=== PATIENT | female | born 1970 | race Caucasian/White ===

== ENCOUNTER 2018-07-15 16:19 | Emergency (ER) | payer MEDICARE, MEDICAID, SELFPAY ==
[2018-07-15 16:32] VITALS: BP 139/98; PULSE 114; RESP 18; TEMP 37.2; O2SAT 100; BMI 4483.4
[2018-07-15 17:23] LABS: RBC Urine 0-1/HPF (0-5/HPF)
[2018-07-15 17:24] LABS: Bacteria Urine Occasional (0-1); Culture Indicated Urine Cult Not Indicated; Squamous Epithelial Cell Urine 1-5 /HPF (0-5/HPF); WBC Urine 0-1/HPF (0-5/HPF)
--- NOTE | 2018-07-15 17:25 | ED.ABDPAIN ---
HPI - Abdominal Pain <Amber Correia DO - Last Filed: 07/16/18 10:53> General Chief Complaint: Abdominal Pain Stated Complaint: angry stomach Time Seen by Provider: 07/15/18 17:11 Source: patient Mode of arrival: ambulatory Limitations: no limitations History of Present Illness HPI narrative: Patient is a 48-year-old female who presents with upper gastric pain. she says it started last evening. She feels nauseated no vomiting. She has had this pain before she has had complete workup she still has her gallbladder. She does have some right upper quadrant pain. She has had low-grade fever but has had upper respiratory well no cough or shortness of breath. MD complaint: abdominal pain Onset (ago): day(s) (1) Location: RUQ Quality: cramping Radiation: none Migration to: no migration Relieving factors: nothing Related Data Home Medications Medication Instructions Recorded Confirmed albuterol sulfate [Ventolin HFA] 2 puff INHALATION PRN PRN 07/15/18 07/15/18 budesonide-formoterol [Symbicort] 2 puff INHALATION BID 07/15/18 07/15/18 ibuprofen 800 mg PO BID 07/15/18 07/15/18 primidone 0.25 tab PO DAILY 07/15/18 07/15/18 Previous Rx's Medication Instructions Recorded ranitidine HCl [Zantac] 150 mg PO DAILY #30 tab 07/15/18 Allergies Allergy/AdvReac Type Severity Reaction Status Date / Time adhesive Allergy Rash Verified 07/15/18 16:40 iodine Allergy Verified 07/15/18 16:39 Review of Systems <DO Zayda Neal Last Filed: 07/16/18 10:53> Review of Systems GENERAL: Denies chills, fatigue, malaise, fever, sweats, travel HEENT: Denies sinus pain, ear pain, sore throat, difficulty swallowing, neck pain RESPIRATORY: Denies dyspnea, cough, wheezing, hemoptysis, sputum. CARDIOVASCULAR: Denies chest pain, palpitations, orthopnea, edema GASTROINTESTINAL: See HPI : Denies dysuria, frequency, incontinence, hematuria, urinary retention, flank pain. MUSCULOSKELETAL: Denies weakness, joint pain, or bony pain SKIN: No rash, no erythema, no pruritus NEUROLOGIC: Denies weakness, dizziness, headache, numbness, change in speech, confusion PSYCHIATRIC: No concerning psychosocial issues. 12 point review of systems is negative except for those stated above and HPI PFSH <DO Zayda Neal Last Filed: 07/16/18 10:53> Medical History Asthma (Acute) Cervical vertebral fusion (Acute) Surgical History History of bilateral tubal ligation (Acute) History of bladder suspension procedure (Acute) Social History Smoking Status: Current every day smoker Social History Smoking Status: Current every day smoker Exam <DO Zayda Neal Last Filed: 07/16/18 10:53> Initial Vital Signs Initial Vital Signs: Vital Signs Temperature 99.0 F 07/15/18 16:32 Pulse Rate 114 H 07/15/18 16:32 Respiratory Rate 18 07/15/18 16:32 Blood Pressure 139/98 H 07/15/18 16:32 Pulse Oximetry 100 07/15/18 16:32 GENERAL: Alert oriented female and in no acute distress. HEENT: Head atraumatic,EOMI, pupils reactive, face symmetric CARDIOVASCULAR: Regular rate and rhythm without murmurs, rubs or gallops. RESPIRATORY: Breath sounds equal bilaterally, no wheezes rales or rhonchi. ABDOMEN: Soft, epigastric pain right upper quadrant pain positive Rodriguez sign no guarding no rebound EXTREMITIES: Normal range of motion, no clubbing or edema. Neurovascularly intact NEUROLOGICAL: Alert and oriented x4.Normal gait and speech. Cranial nerves II through XII grossly intact. SKIN: Warm, dry, no laceration, no petechiae, no rashes or lesions. <Aakash Raza DO - Last Filed: 07/15/18 19:55> Initial Vital Signs Initial Vital Signs: Vital Signs Temperature 99.0 F 07/15/18 16:32 Pulse Rate 114 H 07/15/18 16:32 Respiratory Rate 18 07/15/18 16:32 Blood Pressure 139/98 H 07/15/18 16:32 Pulse Oximetry 100 07/15/18 16:32 Course <DO Zayda Neal Last Filed: 07/16/18 10:53> Orders Ordered: Discontinued Medications Sodium Chloride (Normal Saline 0.9%) 1,000 mls @ 150 mls/hr IV CONT SOUMYA Last Admin: 07/15/18 18:59 Dose: Not Given Sodium Chloride (Normal Saline 0.9%) 1,000 mls @ 1,000 mls/hr IV BOLUS ONE Stop: 07/15/18 18:30 Last Infusion: 07/15/18 19:00 Dose: 0 mls/hr Admin: 07/15/18 17:45 Dose: 1,000 mls/hr Ketorolac Tromethamine (Toradol) 30 mg IV NOW ONE Stop: 07/15/18 17:32 Last Admin: 07/15/18 17:45 Dose: 30 mg Ondansetron HCl (Zofran) 4 mg IV NOW ONE Stop: 07/15/18 17:32 Last Admin: 07/15/18 17:45 Dose: 4 mg Pantoprazole Sodium (Protonix) 40 mg IV NOW ONE Stop: 07/15/18 17:32 Last Admin: 07/15/18 17:45 Dose: 40 mg Vital Signs - 8 hr 07/15/18 16:32 07/15/18 18:00 Temperature 99.0 F Pulse Rate 114 H 101 H Respiratory Rate 18 20 Blood Pressure 139/98 H Blood Pressure [Right Arm] 120/105 H Pulse Oximetry 100 98 <Aakash Raza DO - Last Filed: 07/15/18 19:55> Orders Ordered: Discontinued Medications Sodium Chloride (Normal Saline 0.9%) 1,000 mls @ 150 mls/hr IV CONT [facility] Last Admin: 07/15/18 18:59 Dose: Not Given Sodium Chloride (Normal Saline 0.9%) 1,000 mls @ 1,000 mls/hr IV BOLUS ONE Stop: 07/15/18 18:30 Last Infusion: 07/15/18 19:00 Dose: 0 mls/hr Admin: 07/15/18 17:45 Dose: 1,000 mls/hr Ketorolac Tromethamine (Toradol) 30 mg IV NOW ONE Stop: 07/15/18 17:32 Last Admin: 07/15/18 17:45 Dose: 30 mg Ondansetron HCl (Zofran) 4 mg IV NOW ONE Stop: 07/15/18 17:32 Last Admin: 07/15/18 17:45 Dose: 4 mg Pantoprazole Sodium (Protonix) 40 mg IV NOW ONE Stop: 07/15/18 17:32 Last Admin: 07/15/18 17:45 Dose: 40 mg Vital Signs - 8 hr 07/15/18 16:32 07/15/18 18:00 Temperature 99.0 F Pulse Rate 114 H 101 H Respiratory Rate 18 20 Blood Pressure 139/98 H Blood Pressure [Right Arm] 120/105 H Pulse Oximetry 100 98 MDM - Abdominal Pain <Amber Correia DO - Last Filed: 07/16/18 10:53> Lab Data Attestation: I reviewed the patient's lab results. Result diagrams: 07/15/18 17:30 07/15/18 18:05 Lab Results 07/15/18 07/15/18 07/15/18 Range/Units 17:00 17:30 18:05 WBC 8.0 (4.5-11.0) X10^3/uL RBC 5.26 H (4.0-5.2) X10^6/uL Hgb 15.4 (12.0-16.0) g/dL Hct 45.8 (36-46) % MCV 87.2 (80-100) fL MCH 29.2 (26-34) PG MCHC 33.5 (30-36) % RDW 14.3 (11.6-14.8) % Plt Count 167 (150-400) X10^3/uL Neut % (Auto) 77.5 H (50-75) % Lymph % (Auto) 16.2 L (25-40) % [place] % (Auto) 5.0 (3-14) % Eos % (Auto) 1.0 L (2-4) % Baso % (Auto) 0.3 (0-2) % Neut # (Auto) 6200 (0982-5230) /uL Lymph # (Auto) 1300 (5794-4884) /uL [place] # (Auto) 400 (0-900) /uL Eos # (Auto) 100 (0-450) /uL Baso # (Auto) 0 (0-100) /uL Sodium 135 L (137-145) mmol/L Potassium 3.7 (3.4-5.1) mmol/L Chloride 103 (98-107) mmol/L Carbon Dioxide 23 (22-32) mmol/L BUN 11 (7-17) mg/dL Creatinine 0.70 (0.52-1.04) mg/dL Estimated GFR > 60.0 (>60) mL/min BUN/Creatinine Ratio 15.7 (6-22) Glucose 91 (70-100) mg/dL Calcium 8.4 (8.4-10.2) mg/dL Total Bilirubin 0.4 (0.2-1.3) mg/dL AST 14 (14-36) IU/L ALT 16 (9-52) IU/L Alkaline Phosphatase 69 (38-126) U/L Total Protein 6.8 (6.3-8.2) g/dL Albumin 4.1 (3.5-5.0) g/dL Globulin 2.7 (1.7-4.1) g/dL Albumin/Globulin Ratio 1.5 (1.0-2.8) Lipase 40 (23-300) U/L Urine RBC 0-1/hpf (0-5/HPF) Urine WBC 0-1/hpf (0-5/HPF) Ur Squamous Epith Cells 1-5 /hpf (0-5/HPF) Urine Bacteria Occasional (0-1) (None) Ur Culture Indicated? Cult not indicated Point of care testing: Urine Dip Bedside Urine Glucose Negative Bedside Urine Bilirubin + 1 Bedside Urine Ketone - Negative Urine Specific [place] 1.025 Bedside Urine Occult Blood +/- Bedside Urine pH 5.0 Bedside Urine Protein - Negative Bedside Urine Urobilinogen - Negative Bedside Urine Nitrite - Negative Bedside Urine Leukocytes - Negative Esterase MDM Narrative Medical decision making narrative: PATIENT SIGNED OUT TO THE [facility] PROVIDER AWAITING BLOOD WORK AND ULTRASOUND. At this time pain improved <Aakash Raza DO - Last Filed: 07/15/18 19:55> Lab Data Attestation: I reviewed the patient's lab results. Lab Results 07/15/18 07/15/18 07/15/18 Range/Units 17:00 17:30 18:05 WBC 8.0 (4.5-11.0) X10^3/uL RBC 5.26 H (4.0-5.2) X10^6/uL Hgb 15.4 (12.0-16.0) g/dL Hct 45.8 (36-46) % MCV 87.2 (80-100) fL MCH 29.2 (26-34) PG MCHC 33.5 (30-36) % RDW 14.3 (11.6-14.8) % Plt Count 167 (150-400) X10^3/uL Neut % (Auto) 77.5 H (50-75) % Lymph % (Auto) 16.2 L (25-40) % [place] % (Auto) 5.0 (3-14) % Eos % (Auto) 1.0 L (2-4) % Baso % (Auto) 0.3 (0-2) % Neut # (Auto) 6200 (5317-5364) /uL Lymph # (Auto) 1300 (6823-9030) /uL [place] # (Auto) 400 (0-900) /uL Eos # (Auto) 100 (0-450) /uL Baso # (Auto) 0 (0-100) /uL Sodium 135 L (137-145) mmol/L Potassium 3.7 (3.4-5.1) mmol/L Chloride 103 (98-107) mmol/L Carbon Dioxide 23 (22-32) mmol/L BUN 11 (7-17) mg/dL Creatinine 0.70 (0.52-1.04) mg/dL Estimated GFR > 60.0 (>60) mL/min BUN/Creatinine Ratio 15.7 (6-22) Glucose 91 (70-100) mg/dL Calcium 8.4 (8.4-10.2) mg/dL Total Bilirubin 0.4 (0.2-1.3) mg/dL AST 14 (14-36) IU/L ALT 16 (9-52) IU/L Alkaline Phosphatase 69 (38-126) U/L Total Protein 6.8 (6.3-8.2) g/dL Albumin 4.1 (3.5-5.0) g/dL Globulin 2.7 (1.7-4.1) g/dL Albumin/Globulin Ratio 1.5 (1.0-2.8) Lipase 40 (23-300) U/L Urine RBC 0-1/hpf (0-5/HPF) Urine WBC 0-1/hpf (0-5/HPF) Ur Squamous Epith Cells 1-5 /hpf (0-5/HPF) Urine Bacteria Occasional (0-1) (None) Ur Culture Indicated? Cult not indicated Point of care testing: Urine Dip Bedside Urine Glucose Negative Bedside Urine Bilirubin + 1 Bedside Urine Ketone - Negative Urine Specific [place] 1.025 Bedside Urine Occult Blood +/- Bedside Urine pH 5.0 Bedside Urine Protein - Negative Bedside Urine Urobilinogen - Negative Bedside Urine Nitrite - Negative Bedside Urine Leukocytes - Negative Esterase Imaging Data US - abdomen: Radiologist's impression: [address] [address] Ultrasound Report Signed Patient: Megan Trejo [facility]#: [id number] : 1970Acct:[id number] Age/Sex: 48 / FDate of Service: 07/15/18 Loc: ED Accession Number: [id number] Procedure: US abdomen limited Ordering Provider: Amber Correia D.O. PROCEDURE: US ABDOMEN LIMITED INDICATIONS: RIGHT UPPER QUADRANT PAIN TECHNIQUE: Real-time focused scanning was performed of the abdomen, with image documentation. COMPARISON: None. FINDINGS: Gallbladder is within normal limits. No biliary ductal dilatation. Pancreas is not well seen but grossly unremarkable as visualized. Liver is mildly enlarged. IMPRESSION: No acute process. Dictated by: Rigo Pandya M.D. on 07/15/2018 at 19:23 Approved by: Rigo Pandya M.D. on 07/15/2018 at 19:23 ECG Data Attestation: I personally reviewed and interpreted this ECG as follows: Prior ECG tracings: not available for review Interpretation: Sinus rhythm Ventricular rate is 77 Normal QRS Normal QTC No ST T wave changes MDM Narrative Medical decision making narrative: Received turned over from day provider. Reviewed patient's history and physical. Perform my own independent physical exam. Patient's ultrasound is unremarkable. Her EKG was unremarkable. The patient states she has had this same pain multiple times over the past several years. Sounds like she has had an extensive GI workup to include a colonoscopy and [place] She was told at that time that her duodenum was inflamed. She also states she has had CT scans in the past and was told that other portions of her bowel were inflamed. She states that all the studies were done because pain in her abdomen that is the same pain that she is having today. We did discuss the use of reflux disease medications. She is not currently on any these medicines. She states she thinks that maybe these have helped in the past. She was given a prescription for Zantac and will start taking this. Informed her that she needed to talk with her primary doctor regarding follow-up and discussed the indications for referral to see Gastroenterology. She was also given return precautions. She expressed understanding and agreement with plan. Discharge Plan Departure Patient Disposition: Home Clinical Impression: Abdominal pain Qualifiers: Abdominal location: epigastric Qualified Code(s): R10.13 - Epigastric pain Discharge Date/Time: 07/15/18 20:07 Interventions: ED Discharge Assessment Last Done: 07/15/18 20:07 Instructions: DI for Abdominal Pain-Adult Activity Restrictions/Additional Instructions: I recommend you start taking the Zantac as directed. I also recommend you talk with your primary doctor about a referral to see Gastroenterology. Return to the emergency department for any new or worsening symptoms Prescriptions: New ranitidine HCl [Zantac] 150 mg tablet 150 mg PO DAILY Qty: 30 RF: 0 No Action primidone 50 mg tablet 0.25 tab PO DAILY RF: 0 Symbicort 160-4.5 mcg/actuation HFA aerosol inhaler 2 puff Inhalation BID RF: 0 ibuprofen 800 mg Tablet 800 mg PO BID RF: 0 albuterol sulfate [Ventolin HFA] 90 mcg/actuation HFA aerosol inhaler 2 puff Inhalation PRN PRN (Reason: Pain (Scale Score 4-6)) RF: 0
[2018-07-15 17:43] LABS: Add Manual Diff / Slide Review NO; Basophils Absolute Auto 0 /uL (0-100); Basophils Percent Auto 0.3 % (0-2); Eosinophils Absolute Auto 100 /uL (0-450); Hematocrit 45.8 % (36-46); Hemoglobin 15.4 g/dL (12.0-16.0); Lymphocytes Absolute Auto 1300 /uL (1100-4500); Lymphocytes Percent Auto 16.2 % (25-40); Mean Corpuscular HGB Conc 33.5 % (30-36); Mean Corpuscular Hemoglobin 29.2 PG (26-34); Mean Corpuscular Volume 87.2 fL (80-100); Monocytes Absolute Auto 400 /uL (0-900); Neutrophils Absolute Auto 6200 /uL (1500-7000); Neutrophils Percent Auto 77.5 % (50-75); Platelet Count 167 X10^3/uL (150-400); Red Blood Cell Count 5.26 X10^6/uL (4.0-5.2); Red Cell Distribution Width 14.3 % (11.6-14.8)
[2018-07-15] MEDS: ONDANSETRON 4 MG/2 ML INJ IV (17:45)
[2018-07-15] MEDS: PANTOPRAZOLE 40 MG VIAL IV (17:45)
[2018-07-15] MEDS: SODIUM CHLORIDE 0.9% 1,000 ML 1000 ML IV (17:45)
[2018-07-15] MEDS: KETOROLAC 60 MG/2 ML VIAL 30 MG IV (17:45)
[2018-07-15 18:00] VITALS: BP 120/105; PULSE 101; RESP 20; O2SAT 98
--- NOTE | 2018-07-15 18:16 | DI.US.S_ITS ---
PROCEDURE: US ABDOMEN LIMITED INDICATIONS: RIGHT UPPER QUADRANT PAIN TECHNIQUE: Real-time focused scanning was performed of the abdomen, with image documentation. COMPARISON: None. FINDINGS: Gallbladder is within normal limits. No biliary ductal dilatation. Pancreas is not well seen but grossly unremarkable as visualized. Liver is mildly enlarged. IMPRESSION: No acute process. Dictated by: Rigo Pandya M.D. on 07/15/2018 at 19:23 Approved by: Rigo Pandya M.D. on 07/15/2018 at 19:23
[2018-07-15 18:46] LABS: Alanine Aminotransferase 16 IU/L (9-52); Albumin 4.1 g/dL (3.5-5.0); Albumin Globulin Ratio 1.5 (1.0-2.8); Alkaline Phosphatase 69 U/L (38-126); Aspartate Aminotransferase 14 IU/L (14-36); BUN Creatinine Ratio 15.7 (6-22); Bilirubin Total 0.4 mg/dL (0.2-1.3); Blood Urea Nitrogen 11 mg/dL (7-17); Calcium 8.4 mg/dL (8.4-10.2); Carbon Dioxide 23 mmol/L (22-32); Chloride 103 mmol/L (98-107); Estimated Glomerular Filt Rate > 60.0 mL/min (>60); Globulin 2.7 g/dL (1.7-4.1); Glucose 91 mg/dL (70-100); HEMOLYSIS < 15 (0-50); Lipase 40 U/L (23-300); Potassium 3.7 mmol/L (3.4-5.1); Sodium 135 mmol/L (137-145); Total Protein 6.8 g/dL (6.3-8.2)
[2018-07-15 20:05] VITALS: BP 108/74; PULSE 88; RESP 20; O2SAT 98
== END 2018-07-15 20:07 | disposition home or self-care (01) ==
PROVIDERS: Emergency Medicine; Emergency Provider Emergency Medicine
DX: R10.13 Epigastric pain (principal); R10.11 Right upper quadrant pain; R11.0 Nausea
CPT/HCPCS: 36415; 36591; 76705; 80053; 81003; 81015; 83690; 85025; 93005; 96361; 96374; 96375; 99283; 99285; C9113; J1885; J2405

== ENCOUNTER 2018-07-26 04:58 | Emergency (ER) | payer MEDICARE, MEDICAID, SELFPAY ==
[2018-07-26 04:59] VITALS: BP 137/85; PULSE 86; RESP 20; TEMP 36.6; O2SAT 98; BMI 32.3
--- NOTE | 2018-07-26 05:18 | ED_ITS ---
HPI - Abdominal Pain General Chief Complaint: Abdominal Pain Stated Complaint: abdominal pain Time Seen by Provider: 07/26/18 05:15 Source: patient Mode of arrival: ambulatory Limitations: no limitations History of Present Illness HPI narrative: Patient is a 53-year-old female presents with abdominal pain. He has had this pain off and on for number of years. She was seen evaluated by myself 07/16/2018. She had an ultrasound blood work and discharged home. She says since then she has been on Zantac she has only been able to eat toast. Last night she ate some pizza and is now in much worse severe pain. She says that she has had EGDs in the past but it has been at least 10 years. MD complaint: abdominal pain Onset (ago): week(s) Pain Consistency: constant Severity: moderate Quality: cramping Radiation: none Migration to: no migration Relieving factors: nothing Exacerbating factors: nothing Related Data Home Medications Medication Instructions Recorded Confirmed albuterol sulfate [Ventolin HFA] 2 puff INHALATION PRN PRN 07/15/18 07/15/18 budesonide-formoterol [Symbicort] 2 puff INHALATION BID 07/15/18 07/15/18 ibuprofen 800 mg PO BID 07/15/18 07/15/18 primidone 0.25 tab PO DAILY 07/15/18 07/15/18 Previous Rx's Medication Instructions Recorded ranitidine HCl [Zantac] 150 mg PO DAILY #30 tab 07/15/18 omeprazole 40 mg PO BID #20 cap 07/26/18 omeprazole 40 mg PO DAILY #20 cap 07/26/18 Allergies Allergy/AdvReac Type Severity Reaction Status Date / Time adhesive Allergy Rash Verified 07/15/18 16:40 iodine Allergy Verified 07/15/18 16:39 Review of Systems Review of Systems GENERAL: Denies chills, fatigue, malaise, fever, sweats, travel HEENT: Denies sinus pain, ear pain, sore throat, difficulty swallowing, neck pain RESPIRATORY: Denies dyspnea, cough, wheezing, hemoptysis, sputum. CARDIOVASCULAR: Denies chest pain, palpitations, orthopnea, edema GASTROINTESTINAL: See HPI : Denies dysuria, frequency, incontinence, hematuria, urinary retention, flank pain. MUSCULOSKELETAL: Denies weakness, joint pain, or bony pain SKIN: No rash, no erythema, no pruritus NEUROLOGIC: Denies weakness, dizziness, headache, numbness, change in speech, confusion PSYCHIATRIC: No concerning psychosocial issues. 12 point review of systems is negative except for those stated above and HPI [facility] Medical History Asthma (Acute) Cervical vertebral fusion (Acute) Surgical History History of bilateral tubal ligation (Acute) History of bladder suspension procedure (Acute) Social History Smoking Status: Current every day smoker Social History Smoking Status: Current every day smoker Exam Initial Vital Signs Initial Vital Signs: Vital Signs Temperature 98 F 07/26/18 04:59 Pulse Rate 86 07/26/18 04:59 Respiratory Rate 20 07/26/18 04:59 Blood Pressure 137/85 07/26/18 04:59 Pulse Oximetry 98 07/26/18 04:59 GENERAL: Well-appearing, well-nourished and in no acute distress. HEENT: Head atraumatic,EOMI, pupils reactive, face symmetric, moist mucous membranes CARDIOVASCULAR: Regular rate and rhythm without murmurs, rubs or gallops. RESPIRATORY: Breath sounds equal bilaterally, no wheezes rales or rhonchi. ABDOMEN: Soft, tender epigastric area no right upper arm pain or guarding or rebound EXTREMITIES: Normal range of motion, no clubbing or edema. Neurovascularly intact NEUROLOGICAL: Alert and oriented x4.Normal gait and speech. Cranial nerves II through XII grossly intact. SKIN: Warm, dry, no laceration, no petechiae, no rashes or lesions. Course Orders Ordered: Discontinued Medications Sodium Chloride (Normal Saline 0.9%) 1,000 mls @ 150 mls/hr IV CONT SOUMYA Last Infusion: 07/26/18 08:03 Dose: 0 mls/hr Admin: 07/26/18 05:39 Dose: 150 mls/hr Pantoprazole Sodium (Protonix) 40 mg IV NOW ONE Stop: 07/26/18 05:24 Last Admin: 07/26/18 05:39 Dose: 40 mg Vital Signs - 8 hr 07/26/18 04:59 05/09/19 07:29 Temperature 98 F Pulse Rate 86 81 Respiratory Rate 20 17 Blood Pressure 137/85 Blood Pressure [Left Arm] 122/76 Pulse Oximetry 98 99 MDM - Abdominal Pain Lab Data Attestation: I reviewed the patient's lab results. Result diagrams: 07/26/18 05:00 07/26/18 05:00 Lab Results 07/26/18 07/26/18 Range/Units 05:00 05:00 WBC 9.5 (4.5-11.0) X10^3/uL RBC 5.22 H (4.0-5.2) X10^6/uL Hgb 15.0 (12.0-16.0) g/dL Hct 45.1 (36-46) % MCV 86.5 (80-100) fL MCH 28.7 (26-34) PG MCHC 33.2 (30-36) % RDW 14.3 (11.6-14.8) % Plt Count 183 (150-400) X10^3/uL Neut % (Auto) 63.2 (50-75) % Lymph % (Auto) 28.2 (25-40) % [place] % (Auto) 6.0 (3-14) % Eos % (Auto) 1.7 L (2-4) % Baso % (Auto) 0.9 (0-2) % Neut # (Auto) 6000 (9908-0950) /uL Lymph # (Auto) 2700 (5590-0393) /uL [place] # (Auto) 600 (0-900) /uL Eos # (Auto) 200 (0-450) /uL Baso # (Auto) 100 (0-100) /uL Sodium 140 (137-145) mmol/L Potassium 4.2 (3.4-5.1) mmol/L Chloride 105 (98-107) mmol/L Carbon Dioxide 23 (22-32) mmol/L BUN 16 (7-17) mg/dL Creatinine 0.80 (0.52-1.04) mg/dL Estimated GFR > 60.0 (>60) mL/min BUN/Creatinine Ratio 20.0 (6-22) Glucose 102 H (70-100) mg/dL Calcium 9.7 (8.4-10.2) mg/dL Total Bilirubin 0.3 (0.2-1.3) mg/dL AST 14 (14-36) IU/L ALT 18 (9-52) IU/L Alkaline Phosphatase 66 (38-126) U/L Total Protein 7.3 (6.3-8.2) g/dL Albumin 4.3 (3.5-5.0) g/dL Globulin 3.0 (1.7-4.1) g/dL Albumin/Globulin Ratio 1.4 (1.0-2.8) Lipase 83 (23-300) U/L Point of care testing: Urine Dip Bedside Urine Glucose Negative Bedside Urine Bilirubin - Negative Bedside Urine Ketone - Negative Urine Specific [place] 1.030 Bedside Urine Occult Blood - Negative Bedside Urine pH 5.5 Bedside Urine Protein - Negative Bedside Urine Urobilinogen - Negative Bedside Urine Nitrite - Negative Bedside Urine Leukocytes - Negative Esterase Imaging Data CT scan - abdomen: Radiologist's impression: PROCEDURE: CT ABDOMEN PELVIS W CON INDICATIONS: worsening epigastric pain, US 1 wk ago negative TECHNIQUE: After the administration of intravenous contrast, 5 mm thick sections acquired from the diaphragm to the symphysis. 5 mm coronal and sagittal reformats were acquired. For radiation dose reduction, the following was used: automated exposure control, adjustment of mA and/or kV according to patient size. COMPARISON: None. FINDINGS: Image quality: Excellent. ABDOMEN: Lung bases: Lung bases are clear. Heart size is normal. Solid organs: Scattered subcentimeter hepatic hypodensities in the left lobe, for example image 19 series 2 which are too small to characterize and technically indeterminate. Gallbladder negative. Biliary system is non dilated. Pancreas enhances normally. Spleen is normal in size and enhancement. 8mm indeterminate left adrenal nodule on image 25 series 2. Right adrenal gland unremarkable. 2 mm right renal calculus without evidence of urinary obstruction. Left kidney normal. Peritoneum and bowel: Stomach is decompressed. There is questionable gastric wall prominence although this could be due to collapsed state. There is also mild prominence of the splenic flexure raising possibility of mural thickening however also decompressed state and therefore clinical correlation necessary. No adjacent inflammatory fat stranding. No free fluid or air. The appendix is within normal limits Nodes and vessels: No retroperitoneal or mesenteric adenopathy by size criteria. Aorta and inferior vena cava are normal in size. Miscellaneous: No ventral hernias. PELVIS: Genitourinary: The bladder grossly unremarkable. Enlarged heterogeneous leiomyomatous appearance of the uterus although technically indeterminate. Associated ill- defined uterine calcification image 69 series 2. Miscellaneous: No inguinal hernias or adenopathy. Bones: No suspicious bony lesions. No vertebral body compression fractures. IMPRESSION: The stomach and colon is decompressed. Questionable gastric wall thickening. There is also prominent colonic wall appearance involving the left splenic flexure. This raises the possibility of a low-grade gastritis or colitis although the appearance could be due to decompressed state. This was personally telephoned and discussed with Dr. Bethea in the emergency department on the morning of 07/26/18 Enlarged heterogeneous uterus presumably reflecting multiple uterine fibroids. The appearance is technically nonspecific however and if clinically warranted, further evaluation with pelvic ultrasound, or continued long-term surveillance with CT could be performed. Nonspecific hepatic hypodensities, too small to characterize accurately. Nonobstructive right renal calculus. Indeterminate small left adrenal nodule. This could also be further assessed with adrenal protocol MRI (although given subcentimeter size this may be due to small for a ccurate assessment; as such, consider continued long-term surveillance with CT. Dictated by: Mauro Landaverde M.D. on 07/26/2018 at 8:46 MDM Narrative Medical decision making narrative: Patient signed out to . Anticipate patient going home, waiting for CT. Discharge Plan Departure Patient Disposition: Home Clinical Impression: Gastric ulcer Qualifiers: Gastric ulcer chronicity: acute Gastric ulcer complication status: without hemorrhage or perforation Qualified Code(s): K25.3 - Acute gastric ulcer without hemorrhage or perforation Discharge Date/Time: 07/26/18 08:04 Interventions: ED Discharge Assessment Last Done: 07/26/18 08:04 Instructions: Gastric Ulcer Activity Restrictions/Additional Instructions: *You have been diagnosed with gastric ulcer *What to do: You may need an EGD to help with diagnosis. Please speak with her PCP about this *Continue to take medications as directed Omeprazole 40 mg twice daily 30 minutes before eating. Avoid NSAIDs such as ibuprofen, Aleve, Advil, Toradol, naproxen etc *Follow up with your primary care provider in 2-3 days *Return to ER if you should have increasing pain persistent vomiting bloody stool or any new, worsening or concerning symptoms Prescriptions: New omeprazole 40 mg capsule,delayed release(DR/EC) 40 mg PO BID Qty: 20 RF: 0 omeprazole 40 mg capsule,delayed release(DR/EC) 40 mg PO DAILY Qty: 20 RF: 0 No Action primidone 50 mg tablet 0.25 tab PO DAILY RF: 0 Symbicort 160-4.5 mcg/actuation HFA aerosol inhaler 2 puff Inhalation BID RF: 0 ibuprofen 800 mg Tablet 800 mg PO BID RF: 0 albuterol sulfate [Ventolin HFA] 90 mcg/actuation HFA aerosol inhaler 2 puff Inhalation PRN PRN (Reason: Pain (Scale Score 4-6)) RF: 0 ranitidine HCl [Zantac] 150 mg tablet 150 mg PO DAILY Qty: 30 RF: 0
[2018-07-26 05:39] LABS: Add Manual Diff / Slide Review NO; Basophils Absolute Auto 100 /uL (0-100); Basophils Percent Auto 0.9 % (0-2); Eosinophils Absolute Auto 200 /uL (0-450); Eosinophils Percent Auto 1.7 % (2-4); Hematocrit 45.1 % (36-46); Lymphocytes Absolute Auto 2700 /uL (1100-4500); Lymphocytes Percent Auto 28.2 % (25-40); Mean Corpuscular HGB Conc 33.2 % (30-36); Mean Corpuscular Hemoglobin 28.7 PG (26-34); Mean Corpuscular Volume 86.5 fL (80-100); Monocytes Absolute Auto 600 /uL (0-900); Neutrophils Absolute Auto 6000 /uL (1500-7000); Neutrophils Percent Auto 63.2 % (50-75); Platelet Count 183 X10^3/uL (150-400); Red Blood Cell Count 5.22 X10^6/uL (4.0-5.2); Red Cell Distribution Width 14.3 % (11.6-14.8); White Blood Cell Count 9.5 X10^3/uL (4.5-11.0)
[2018-07-26] MEDS: SODIUM CHLORIDE 0.9% 1,000 ML 150 ML IV (05:39)
[2018-07-26] MEDS: PANTOPRAZOLE 40 MG VIAL IV (05:39)
[2018-07-26 05:40] LABS: Alanine Aminotransferase 18 IU/L (9-52); Albumin 4.3 g/dL (3.5-5.0); Albumin Globulin Ratio 1.4 (1.0-2.8); Alkaline Phosphatase 66 U/L (38-126); Aspartate Aminotransferase 14 IU/L (14-36); Bilirubin Total 0.3 mg/dL (0.2-1.3); Blood Urea Nitrogen 16 mg/dL (7-17); Calcium 9.7 mg/dL (8.4-10.2); Carbon Dioxide 23 mmol/L (22-32); Chloride 105 mmol/L (98-107); Estimated Glomerular Filt Rate > 60.0 mL/min (>60); Glucose 102 mg/dL (70-100); HEMOLYSIS < 15 (0-50); Lipase 83 U/L (23-300); Potassium 4.2 mmol/L (3.4-5.1); Sodium 140 mmol/L (137-145); Total Protein 7.3 g/dL (6.3-8.2)
--- NOTE | 2018-07-26 06:51 | DI.CT.S_ITS ---
PROCEDURE: CT ABDOMEN PELVIS W CON INDICATIONS: worsening epigastric pain, US 1 wk ago negative TECHNIQUE: After the administration of intravenous contrast, 5 mm thick sections acquired from the diaphragm to the symphysis. 5 mm coronal and sagittal reformats were acquired. For radiation dose reduction, the following was used: automated exposure control, adjustment of mA and/or kV according to patient size. COMPARISON: None. FINDINGS: Image quality: Excellent. ABDOMEN: Lung bases: Lung bases are clear. Heart size is normal. Solid organs: Scattered subcentimeter hepatic hypodensities in the left lobe, for example image 19 series 2 which are too small to characterize and technically indeterminate. Gallbladder negative. Biliary system is non dilated. Pancreas enhances normally. Spleen is normal in size and enhancement. 8mm indeterminate left adrenal nodule on image 25 series 2. Right adrenal gland unremarkable. 2 mm right renal calculus without evidence of urinary obstruction. Left kidney normal. Peritoneum and bowel: Stomach is decompressed. There is questionable gastric wall prominence although this could be due to collapsed state. There is also mild prominence of the splenic flexure raising possibility of mural thickening however also decompressed state and therefore clinical correlation necessary. No adjacent inflammatory fat stranding. No free fluid or air. The appendix is within normal limits Nodes and vessels: No retroperitoneal or mesenteric adenopathy by size criteria. Aorta and inferior vena cava are normal in size. Miscellaneous: No ventral hernias. PELVIS: Genitourinary: The bladder grossly unremarkable. Enlarged heterogeneous leiomyomatous appearance of the uterus although technically indeterminate. Associated ill-defined uterine calcification image 69 series 2. Miscellaneous: No inguinal hernias or adenopathy. Bones: No suspicious bony lesions. No vertebral body compression fractures. IMPRESSION: The stomach and colon is decompressed. Questionable gastric wall thickening. There is also prominent colonic wall appearance involving the left splenic flexure. This raises the possibility of a low-grade gastritis or colitis although the appearance could be due to decompressed state. This was personally telephoned and discussed with Dr. Bethea in the emergency department on the morning of 07/26/18 Enlarged heterogeneous uterus presumably reflecting multiple uterine fibroids. The appearance is technically nonspecific however and if clinically warranted, further evaluation with pelvic ultrasound, or continued long-term surveillance with CT could be performed. Nonspecific hepatic hypodensities, too small to characterize accurately. Nonobstructive right renal calculus. Indeterminate small left adrenal nodule. This could also be further assessed with adrenal protocol MRI (although given subcentimeter size this may be due to small for accurate assessment; as such, consider continued long-term surveillance with CT. Dictated by: Mauro Landaverde M.D. on 07/26/2018 at 8:46 Approved by: Mauro Landaverde M.D. on 07/26/2018 at 10:42
[2018-07-26 07:29] VITALS: BP 122/76; PULSE 81; RESP 17; O2SAT 99
== END 2018-07-26 08:04 | disposition home or self-care (01) ==
PROVIDERS: Emergency Provider Emergency Medicine
DX: K25.3 Acute gastric ulcer without hemorrhage or perforation (principal)
CPT/HCPCS: 74177; 80053; 81003; 83690; 85025; 96361; 96374; 99283; 99284; C9113; Q9967

== ENCOUNTER 2018-09-12 16:41 | Emergency (ER) | payer MEDICARE, MEDICAID, SELFPAY ==
[2018-09-12 16:45] VITALS: BP 156/92; PULSE 98; RESP 18; TEMP 36.9; O2SAT 98
--- NOTE | 2018-09-12 16:58 | PC.NURSE ---
pt has swelling left side of face. left tooth abscess. pt reports swelling has increased. states she has been dealing with this for two weeks. states she was on penicillin. currently taking different antibiotics.
[2018-09-12 17:31] LABS: Add Manual Diff / Slide Review NO; Basophils Absolute Auto 100 /uL (0-100); Basophils Percent Auto 0.7 % (0-2); Eosinophils Absolute Auto 200 /uL (0-450); Eosinophils Percent Auto 1.5 % (2-4); Hematocrit 42.8 % (36-46); Hemoglobin 14.3 g/dL (12.0-16.0); Lymphocytes Absolute Auto 2300 /uL (1100-4500); Lymphocytes Percent Auto 19.9 % (25-40); Mean Corpuscular HGB Conc 33.3 % (30-36); Mean Corpuscular Hemoglobin 28.9 PG (26-34); Mean Corpuscular Volume 86.8 fL (80-100); Monocytes Absolute Auto 800 /uL (0-900); Neutrophils Absolute Auto 8300 /uL (1500-7000); Neutrophils Percent Auto 70.9 % (50-75); Platelet Count 179 X10^3/uL (150-400); Red Blood Cell Count 4.93 X10^6/uL (4.0-5.2); Red Cell Distribution Width 14.3 % (11.6-14.8); White Blood Cell Count 11.8 X10^3/uL (4.5-11.0)
[2018-09-12] MEDS: SODIUM CHLORIDE 0.9% 1,000 ML 1000 ML IV (17:33)
[2018-09-12] MEDS: ONDANSETRON 4 MG/2 ML INJ IV (17:33)
[2018-09-12 17:45] LABS: Alanine Aminotransferase 19 IU/L (9-52); Albumin 4.2 g/dL (3.5-5.0); Albumin Globulin Ratio 1.4 (1.0-2.8); Alkaline Phosphatase 61 U/L (38-126); Aspartate Aminotransferase 30 IU/L (14-36); BUN Creatinine Ratio 16.3 (6-22); Bilirubin Total 0.5 mg/dL (0.2-1.3); Blood Urea Nitrogen 13 mg/dL (7-17); Calcium 9.6 mg/dL (8.4-10.2); Carbon Dioxide 21 mmol/L (22-32); Chloride 106 mmol/L (98-107); Estimated Glomerular Filt Rate > 60.0 mL/min (>60); Globulin 2.9 g/dL (1.7-4.1); Glucose 104 mg/dL (70-100); Potassium 3.7 mmol/L (3.4-5.1); Sodium 138 mmol/L (137-145); Total Protein 7.1 g/dL (6.3-8.2)
[2018-09-12 17:46] LABS: HEMOLYSIS 77 (0-50); Lactate (Lactic Acid) 0.6 mmol/L (0.7-2.1)
[2018-09-12 18:00] VITALS: BP 128/76; PULSE 86; O2SAT 98
--- NOTE | 2018-09-12 18:07 | ED.DENTAL ---
HPI - Dental/Oral <ALEX OakleyBC - Last Filed: 09/12/18 20:20> General Chief complaint: Dental/Oral Stated complaint: FACIAL SWELLING Time Seen by Provider: 09/12/18 16:48 Source: patient and family Mode of arrival: ambulatory Limitations: no limitations History of Present Illness HPI Narrative: The patient is a 48-year-old female current smoker presents with mother for chief complaint of facial swelling. She is being treated for a dental abscess. She has been on a round penicillin, but started Flagyl and Cipro yesterday. She has had approximately 4 doses of her new antibiotics. She presents today for lack of improvement to her swelling and abscess. Of note the patient does have an appointment on the of next month with an oral surgeon to have her teeth removed. She has seen her dentist several times for this dental abscess. She denies any fevers vomiting. She does complain of slight nausea and diarrhea, associated with clindamycin. Related Data Home Medications Medication Instructions Recorded Confirmed albuterol sulfate [Ventolin HFA] 2 puff INHALATION PRN PRN 07/15/18 09/12/18 budesonide-formoterol [Symbicort] 2 puff INHALATION BID 07/15/18 09/12/18 primidone 12.5 mg PO BEDTIME 07/15/18 09/12/18 atorvastatin 20 mg PO QPM 09/12/18 09/12/18 clindamycin HCl 300 mg PO Q6H 09/12/18 09/12/18 ibuprofen 600 mg PO Q4-6H PRN 09/12/18 09/12/18 metronidazole 250 mg PO Q6H 09/12/18 09/12/18 pantoprazole 20 mg PO QAM 09/12/18 09/12/18 Previous Rx's Medication Instructions Recorded tramadol 50 mg PO Q6H PRN #10 tab 09/12/18 Allergies Allergy/AdvReac Type Severity Reaction Status Date / Time adhesive Allergy Rash Verified 07/15/18 16:40 iodine Allergy Verified 07/15/18 16:39 Review of Systems <TOMMY Oakley - Last Filed: 09/12/18 20:20> Review of Systems GENERAL: Denies chills, fatigue, malaise, fever, sweats. HEENT: See HPI RESPIRATORY: Denies dyspnea, cough, wheezing, hemoptysis, sputum. CARDIOVASCULAR: Denies chest pain, palpitations, orthopnea, edema, GASTROINTESTINAL: Denies nausea, vomiting, abdominal pain, diarrhea, constipation, melena. : Denies dysuria, frequency, incontinence, hematuria, urinary retention. MUSCULOSKELETAL: denies weakness, joint pain, or bony pain SKIN: Denies rash, skin lesions, or other NEUROLOGIC: Denies weakness, headache, numbness, change in speech, confusion, seizures, incoordination. PSYCHIATRIC: No concerning psychosocial issues. 12 point review of systems is negative except for those stated above PFSH <TOMMY Oakley - Last Filed: 09/12/18 20:20> Medical History Asthma (Acute) Cervical vertebral fusion (Acute) Surgical History History of bilateral tubal ligation (Acute) History of bladder suspension procedure (Acute) Social History Smoking Status: Current every day smoker Social History Smoking Status: Current every day smoker Exam <TOMMY Oakley - Last Filed: 09/12/18 20:20> Narrative Exam Narrative: GENERAL: This is a well-nourished, well-developed patient, appears uncomfortable HEAD: Atraumatic. Normocephalic. No temporal or scalp tenderness. EYES: Pupils equal round and reactive. Extraocular motions intact. No scleral icterus. No injection or drainage. ENT: Nose without bleeding, purulent drainage or septal hematoma. Throat without erythema, tonsillar hypertrophy or exudate. Uvula midline. Airway patent dental abscess evident left lower jaw with swelling. Poor dentition noted. Multiple broken teeth noted. NECK: Trachea midline. No JVD or lymphadenopathy. Supple, nontender, no meningeal signs. CARDIOVASCULAR: Regular rate and rhythm without murmurs, gallops, or rubs. RESPIRATORY: Clear to auscultation. Breath sounds equal bilaterally. No rales, or rhonchi. Slightly coarse lung sounds GASTROINTESTINAL: Abdomen soft, non-tender, nondistended. No hepato-splenomegaly, or palpable masses. No guarding. EXTREMITIES: No clubbing, cyanosis, or edema. No joint tenderness, effusion, or edema noted. BACK: Nontender without deformity or crepitance. No flank tenderness. NEURO: AOx3. SKIN: No rash or erythema. No overlying erythema for dental abscess. Initial Vital Signs Initial Vital Signs: Vital Signs Temperature 98.4 F 09/12/18 16:45 Pulse Rate 98 H 09/12/18 16:45 Respiratory Rate 18 09/12/18 16:45 Blood Pressure 156/92 H 09/12/18 16:45 Pulse Oximetry 98 09/12/18 16:45 <Amber Correia DO - Last Filed: 09/13/18 08:13> Initial Vital Signs Initial Vital Signs: Vital Signs Temperature 98.4 F 09/12/18 16:45 Pulse Rate 98 H 09/12/18 16:45 Respiratory Rate 18 09/12/18 16:45 Blood Pressure 156/92 H 09/12/18 16:45 Pulse Oximetry 98 09/12/18 16:45 Course <TOMMY Oakley - Last Filed: 09/12/18 20:20> Orders Ordered: Discontinued Medications Sodium Chloride (Normal Saline 0.9%) 1,000 mls @ 1,000 mls/hr IV BOLUS ONE Stop: 09/12/18 17:57 Last Infusion: 09/12/18 18:51 Dose: 0 mls/hr Admin: 09/12/18 17:33 Dose: 1,000 mls/hr Ondansetron HCl (Zofran) 4 mg IV NOW ONE Stop: 09/12/18 16:59 Last Admin: 09/12/18 17:33 Dose: 4 mg Tramadol HCl (Ultram) 50 mg PO NOW ONE Stop: 09/12/18 18:05 Last Admin: 09/12/18 18:16 Dose: 50 mg Vital Signs - 8 hr 09/12/18 16:45 09/12/18 18:00 09/12/18 18:35 Temperature 98.4 F 98.3 F Pulse Rate 98 H 86 81 Respiratory Rate 18 Blood Pressure 156/92 H Blood Pressure [Left Arm] 128/76 113/69 Pulse Oximetry 98 98 98 <DO Zayda Neal Last Filed: 09/13/18 08:13> Orders Ordered: Discontinued Medications Sodium Chloride (Normal Saline 0.9%) 1,000 mls @ 1,000 mls/hr IV BOLUS ONE Stop: 09/12/18 17:57 Last Infusion: 09/12/18 18:51 Dose: 0 mls/hr Admin: 09/12/18 17:33 Dose: 1,000 mls/hr Ondansetron HCl (Zofran) 4 mg IV NOW ONE Stop: 09/12/18 16:59 Last Admin: 09/12/18 17:33 Dose: 4 mg Tramadol HCl (Ultram) 50 mg PO NOW ONE Stop: 09/12/18 18:05 Last Admin: 09/12/18 18:16 Dose: 50 mg Vital Signs - 8 hr 09/12/18 16:45 09/12/18 18:00 09/12/18 18:35 Temperature 98.4 F 98.3 F Pulse Rate 98 H 86 81 Respiratory Rate 18 Blood Pressure 156/92 H Blood Pressure [Left Arm] 128/76 113/69 Pulse Oximetry 98 98 98 MDM - Dental/Oral <TOMMY Oakley - Last Filed: 09/12/18 20:20> Lab Data Result diagrams: 09/12/18 17:20 09/12/18 17:20 Lab Results 09/12/18 09/12/18 09/12/18 Range/Units 17:20 17:20 17:20 WBC 11.8 H (4.5-11.0) X10^3/uL RBC 4.93 (4.0-5.2) X10^6/uL Hgb 14.3 (12.0-16.0) g/dL Hct 42.8 (36-46) % MCV 86.8 (80-100) fL MCH 28.9 (26-34) PG MCHC 33.3 (30-36) % RDW 14.3 (11.6-14.8) % Plt Count 179 (150-400) X10^3/uL Neut % (Auto) 70.9 (50-75) % Lymph % (Auto) 19.9 L (25-40) % [place] % (Auto) 7.0 (3-14) % Eos % (Auto) 1.5 L (2-4) % Baso % (Auto) 0.7 (0-2) % Neut # (Auto) 8300 H (9501-2072) /uL Lymph # (Auto) 2300 (9320-0838) /uL [place] # (Auto) 800 (0-900) /uL Eos # (Auto) 200 (0-450) /uL Baso # (Auto) 100 (0-100) /uL Sodium 138 (137-145) mmol/L Potassium 3.7 (3.4-5.1) mmol/L Chloride 106 (98-107) mmol/L Carbon Dioxide 21 L (22-32) mmol/L BUN 13 (7-17) mg/dL Creatinine 0.80 (0.52-1.04) mg/dL Estimated GFR > 60.0 (>60) mL/min BUN/Creatinine Ratio 16.3 (6-22) Glucose 104 H (70-100) mg/dL Lactate 0.6 L (0.7-2.1) mmol/L Calcium 9.6 (8.4-10.2) mg/dL Total Bilirubin 0.5 (0.2-1.3) mg/dL AST 30 (14-36) IU/L ALT 19 (9-52) IU/L Alkaline Phosphatase 61 (38-126) U/L Total Protein 7.1 (6.3-8.2) g/dL Albumin 4.2 (3.5-5.0) g/dL Globulin 2.9 (1.7-4.1) g/dL Albumin/Globulin Ratio 1.4 (1.0-2.8) MDM Narrative Medical decision making narrative: The patient is a 48-year-old female presents with a chief complaint of a dental abscess. She is not febrile, not tachycardic. She has a negative lactate. Her white blood cell count slightly elevated 11.6, but this could be a stress response. She already has follow-up scheduled with an oral surgeon, which is very reassuring. I would not expect to have a significant change in or infection given that she only started her new antibiotics yesterday. I offered to drain the abscess, but the patient declined repeatedly stating that she has significant anxiety and would need to be knocked out fully. I encouraged her to use ice, as well as continue [id number] medications as needed and able. I did give her prescription of tramadol for the pain, discussed that it can be sedating and constipating. Discussed monitoring for signs of worsening infection including inability keep down fluids or high fevers. Encouraged follow-up with primary care as scheduled. Patient has no questions or concerns upon discharge and is okay with plan. <Amber Masood, DO - Last Filed: 09/13/18 08:13> Lab Data Lab Results 09/12/18 09/12/18 09/12/18 Range/Units 17:20 17:20 17:20 WBC 11.8 H (4.5-11.0) X10^3/uL RBC 4.93 (4.0-5.2) X10^6/uL Hgb 14.3 (12.0-16.0) g/dL Hct 42.8 (36-46) % MCV 86.8 (80-100) fL MCH 28.9 (26-34) PG MCHC 33.3 (30-36) % RDW 14.3 (11.6-14.8) % Plt Count 179 (150-400) X10^3/uL Neut % (Auto) 70.9 (50-75) % Lymph % (Auto) 19.9 L (25-40) % [place] % (Auto) 7.0 (3-14) % Eos % (Auto) 1.5 L (2-4) % Baso % (Auto) 0.7 (0-2) % Neut # (Auto) 8300 H (0375-7307) /uL Lymph # (Auto) 2300 (9690-6363) /uL [place] # (Auto) 800 (0-900) /uL Eos # (Auto) 200 (0-450) /uL Baso # (Auto) 100 (0-100) /uL Sodium 138 (137-145) mmol/L Potassium 3.7 (3.4-5.1) mmol/L Chloride 106 (98-107) mmol/L Carbon Dioxide 21 L (22-32) mmol/L BUN 13 (7-17) mg/dL Creatinine 0.80 (0.52-1.04) mg/dL Estimated GFR > 60.0 (>60) mL/min BUN/Creatinine Ratio 16.3 (6-22) Glucose 104 H (70-100) mg/dL Lactate 0.6 L (0.7-2.1) mmol/L Calcium 9.6 (8.4-10.2) mg/dL Total Bilirubin 0.5 (0.2-1.3) mg/dL AST 30 (14-36) IU/L ALT 19 (9-52) IU/L Alkaline Phosphatase 61 (38-126) U/L Total Protein 7.1 (6.3-8.2) g/dL Albumin 4.2 (3.5-5.0) g/dL Globulin 2.9 (1.7-4.1) g/dL Albumin/Globulin Ratio 1.4 (1.0-2.8) Discharge Plan Departure Patient Disposition: Home Clinical Impression: Dental abscess Discharge Date/Time: 09/12/18 18:52 Interventions: ED Discharge Assessment Last Done: 09/12/18 18:52 Instructions: Tooth Decay, DI for Dental Pain Activity Restrictions/Additional Instructions: Please follow up with your oral surgeon as scheduled next week. Please continue ice as well as [id number] medications as needed and able. I have given her prescription of tramadol for pain. This could be sedating and constipating. Do not combine it with other sedating agents. Please monitor for fever, inability keep down fluids, or acute concerns. Please come back to emergency department for any acute concerns. I would expect that your antibiotics needed few more doses in order to take full effect. Please follow up with her dentist as well as your oral surgeon as scheduled. Your lab work today was very reassuring Prescriptions: New tramadol 50 mg tablet 50 mg PO Q6H PRN (Reason: pain) Qty: 10 RF: 0 No Action primidone 50 mg tablet 12.5 mg PO BEDTIME RF: 0 Symbicort 160-4.5 mcg/actuation HFA aerosol inhaler 2 puff Inhalation BID RF: 0 albuterol sulfate [Ventolin HFA] 90 mcg/actuation HFA aerosol inhaler 2 puff Inhalation PRN PRN (Reason: Pain (Scale Score 4-6)) RF: 0 atorvastatin 20 mg tablet 20 mg PO QPM RF: 0 clindamycin HCl 300 mg capsule 300 mg PO Q6H RF: 0 metronidazole 250 mg tablet 250 mg PO Q6H RF: 0 pantoprazole 20 mg tablet,delayed release (DR/EC) 20 mg PO QAM RF: 0 ibuprofen 600 mg tablet 600 mg PO Q4-6H PRN (Reason: pain) RF: 0 <Amber Correia, - Last Filed: 09/13/18 08:13> Cosign ED Attending Cosignature Attestation: I was immediately available in the department for consultation. Documentation has been reviewed. I agree with assessment and plan.
--- NOTE | 2018-09-12 18:12 | ED_ITS ---
HPI - Dental/Oral <ALEX OakleyBC - Last Filed: 09/12/18 20:20> General Chief complaint: Dental/Oral Stated complaint: FACIAL SWELLING Time Seen by Provider: 09/12/18 16:48 Source: patient and family Mode of arrival: ambulatory Limitations: no limitations History of Present Illness HPI Narrative: The patient is a 48-year-old female current smoker presents with mother for chief complaint of facial swelling. She is being treated for a dental abscess. She has been on a round penicillin, but started Flagyl and Cipro yesterday. She has had approximately 4 doses of her new antibiotics. She presents today for lack of improvement to her swelling and abscess. Of note the patient does have an appointment on the of next month with an oral surgeon to have her teeth removed. She has seen her dentist several times for this dental abscess. She denies any fevers vomiting. She does complain of slight nausea and diarrhea, associated with clindamycin. Related Data Home Medications Medication Instructions Recorded Confirmed albuterol sulfate [Ventolin HFA] 2 puff INHALATION PRN PRN 07/15/18 09/12/18 budesonide-formoterol [Symbicort] 2 puff INHALATION BID 07/15/18 09/12/18 primidone 12.5 mg PO BEDTIME 07/15/18 09/12/18 atorvastatin 20 mg PO QPM 09/12/18 09/12/18 clindamycin HCl 300 mg PO Q6H 09/12/18 09/12/18 ibuprofen 600 mg PO Q4-6H PRN 09/12/18 09/12/18 metronidazole 250 mg PO Q6H 09/12/18 09/12/18 pantoprazole 20 mg PO QAM 09/12/18 09/12/18 Previous Rx's Medication Instructions Recorded tramadol 50 mg PO Q6H PRN #10 tab 09/12/18 Allergies Allergy/AdvReac Type Severity Reaction Status Date / Time adhesive Allergy Rash Verified 07/15/18 16:40 iodine Allergy Verified 07/15/18 16:39 Review of Systems <TOMMY Oakley - Last Filed: 09/12/18 20:20> Review of Systems GENERAL: Denies chills, fatigue, malaise, fever, sweats. HEENT: See HPI RESPIRATORY: Denies dyspnea, cough, wheezing, hemoptysis, sputum. CARDIOVASCULAR: Denies chest pain, palpitations, orthopnea, edema, GASTROINTESTINAL: Denies nausea, vomiting, abdominal pain, diarrhea, constipation, melena. : Denies dysuria, frequency, incontinence, hematuria, urinary retention. MUSCULOSKELETAL: denies weakness, joint pain, or bony pain SKIN: Denies rash, skin lesions, or other NEUROLOGIC: Denies weakness, headache, numbness, change in speech, confusion, seizures, incoordination. PSYCHIATRIC: No concerning psychosocial issues. 12 point review of systems is negative except for those stated above PFSH <TOMMY Oakley - Last Filed: 09/12/18 20:20> Medical History Asthma (Acute) Cervical vertebral fusion (Acute) Surgical History History of bilateral tubal ligation (Acute) History of bladder suspension procedure (Acute) Social History Smoking Status: Current every day smoker Social History Smoking Status: Current every day smoker Exam <TOMMY Oakley - Last Filed: 09/12/18 20:20> Narrative Exam Narrative: GENERAL: This is a well-nourished, well-developed patient, appears uncomfortable HEAD: Atraumatic. Normocephalic. No temporal or scalp tenderness. EYES: Pupils equal round and reactive. Extraocular motions intact. No scleral icterus. No injection or drainage. ENT: Nose without bleeding, purulent drainage or septal hematoma. Throat without erythema, tonsillar hypertrophy or exudate. Uvula midline. Airway patent dental abscess evident left lower jaw with swelling. Poor dentition noted. Multiple broken teeth noted. NECK: Trachea midline. No JVD or lymphadenopathy. Supple, nontender, no meni ngeal signs. CARDIOVASCULAR: Regular rate and rhythm without murmurs, gallops, or rubs. RESPIRATORY: Clear to auscultation. Breath sounds equal bilaterally. No rales, or rhonchi. Slightly coarse lung sounds GASTROINTESTINAL: Abdomen soft, non-tender, nondistended. No hepato- splenomegaly, or palpable masses. No guarding. EXTREMITIES: No clubbing, cyanosis, or edema. No joint tenderness, effusion, or edema noted. BACK: Nontender without deformity or crepitance. No flank tenderness. NEURO: AOx3. SKIN: No rash or erythema. No overlying erythema for dental abscess. Initial Vital Signs Initial Vital Signs: Vital Signs Temperature 98.4 F 09/12/18 16:45 Pulse Rate 98 H 09/12/18 16:45 Respiratory Rate 18 09/12/18 16:45 Blood Pressure 156/92 H 09/12/18 16:45 Pulse Oximetry 98 09/12/18 16:45 <Amber Correia DO - Last Filed: 09/13/18 08:13> Initial Vital Signs Initial Vital Signs: Vital Signs Temperature 98.4 F 09/12/18 16:45 Pulse Rate 98 H 09/12/18 16:45 Respiratory Rate 18 09/12/18 16:45 Blood Pressure 156/92 H 09/12/18 16:45 Pulse Oximetry 98 09/12/18 16:45 Course <TOMMY aOkley - Last Filed: 09/12/18 20:20> Orders Ordered: Discontinued Medications Sodium Chloride (Normal Saline 0.9%) 1,000 mls @ 1,000 mls/hr IV BOLUS ONE Stop: 09/12/18 17:57 Last Infusion: 09/12/18 18:51 Dose: 0 mls/hr Admin: 09/12/18 17:33 Dose: 1,000 mls/hr Ondansetron HCl (Zofran) 4 mg IV NOW ONE Stop: 09/12/18 16:59 Last Admin: 09/12/18 17:33 Dose: 4 mg Tramadol HCl (Ultram) 50 mg PO NOW ONE Stop: 09/12/18 18:05 Last Admin: 09/12/18 18:16 Dose: 50 mg Vital Signs - 8 hr 09/12/18 16:45 09/12/18 18:00 09/12/18 18:35 Temperature 98.4 F 98.3 F Pulse Rate 98 H 86 81 Respiratory Rate 18 Blood Pressure 156/92 H Blood Pressure [Left Arm] 128/76 113/69 Pulse Oximetry 98 98 98 <DO Zayda Neal Last Filed: 09/13/18 08:13> Orders Ordered: Discontinued Medications Sodium Chloride (Normal Saline 0.9%) 1,000 mls @ 1,000 mls/hr IV BOLUS ONE Stop: 09/12/18 17:57 Last Infusion: 09/12/18 18:51 Dose: 0 mls/hr Admin: 09/12/18 17:33 Dose: 1,000 mls/hr Ondansetron HCl (Zofran) 4 mg IV NOW ONE Stop: 09/12/18 16:59 Last Admin: 09/12/18 17:33 Dose: 4 mg Tramadol HCl (Ultram) 50 mg PO NOW ONE Stop: 09/12/18 18:05 Last Admin: 09/12/18 18:16 Dose: 50 mg Vital Signs - 8 hr 09/12/18 16:45 09/12/18 18:00 09/12/18 18:35 Temperature 98.4 F 98.3 F Pulse Rate 98 H 86 81 Respiratory Rate 18 Blood Pressure 156/92 H Blood Pressure [Left Arm] 128/76 113/69 Pulse Oximetry 98 98 98 MDM - Dental/Oral <TOMMY Oakley - Last Filed: 09/12/18 20:20> Lab Data Result diagrams: 09/12/18 17:20 09/12/18 17:20 Lab Results 09/12/18 09/12/18 09/12/18 Range/Units 17:20 17:20 17:20 WBC 11.8 H (4.5-11.0) X10^3/uL RBC 4.93 (4.0-5.2) X10^6/uL Hgb 14.3 (12.0-16.0) g/dL Hct 42.8 (36-46) % MCV 86.8 (80-100) fL MCH 28.9 (26-34) PG MCHC 33.3 (30-36) % RDW 14.3 (11.6-14.8) % Plt Count 179 (150-400) X10^3/uL Neut % (Auto) 70.9 (50-75) % Lymph % (Auto) 19.9 L (25-40) % [place] % (Auto) 7.0 (3-14) % Eos % (Auto) 1.5 L (2-4) % Baso % (Auto) 0.7 (0-2) % Neut # (Auto) 8300 H (6448-9097) /uL Lymph # (Auto) 2300 (5221-8437) /uL [place] # (Auto) 800 (0-900) /uL Eos # (Auto) 200 (0-450) /uL Baso # (Auto) 100 (0-100) /uL Sodium 138 (137-145) mmol/L Potassium 3.7 (3.4-5.1) mmol/L Chloride 106 (98-107) mmol/L Carbon Dioxide 21 L (22-32) mmol/L BUN 13 (7-17) mg/dL Creatinine 0.80 (0.52-1.04) mg/dL Estimated GFR > 60.0 (>60) mL/min BUN/Creatinine Ratio 16.3 (6-22) Glucose 104 H (70-100) mg/dL Lactate 0.6 L (0.7-2.1) mmol/L Calcium 9.6 (8.4-10.2) mg/dL Total Bilirubin 0.5 (0.2-1.3) mg/dL AST 30 (14-36) IU/L ALT 19 (9-52) IU/L Alkaline Phosphatase 61 (38-126) U/L Total Protein 7.1 (6.3-8.2) g/dL Albumin 4.2 (3.5-5.0) g/dL Globulin 2.9 (1.7-4.1) g/dL Albumin/Globulin Ratio 1.4 (1.0-2.8) MDM Narrative Medical decision making narrative: The patient is a 48-year-old female presents with a chief complaint of a dental abscess. She is not febrile, not tachyc ardic. She has a negative lactate. Her white blood cell count slightly elevated 11.6, but this could be a stress response. She already has follow-up scheduled with an oral surgeon, which is very reassuring. I would not expect to have a significant change in or infection given that she only started her new antibiotics yesterday. I offered to drain the abscess, but the patient declined repeatedly stating that she has significant anxiety and would need to be knocked out fully. I encouraged her to use ice, as well as continue [id number] medications as needed and able. I did give her prescription of tramadol for the pain, discussed that it can be sedating and constipating. Discussed monitoring for signs of worsening infection including inability keep down fluids or high fevers. Encouraged follow-up with primary care as scheduled. Patient has no questions or concerns upon discharge and is okay with plan. <Amber Masood, DO - Last Filed: 09/13/18 08:13> Lab Data Lab Results 09/12/18 09/12/18 09/12/18 Range/Units 17:20 17:20 17:20 WBC 11.8 H (4.5-11.0) X10^3/uL RBC 4.93 (4.0-5.2) X10^6/uL Hgb 14.3 (12.0-16.0) g/dL Hct 42.8 (36-46) % MCV 86.8 (80-100) fL MCH 28.9 (26-34) PG MCHC 33.3 (30-36) % RDW 14.3 (11.6-14.8) % Plt Count 179 (150-400) X10^3/uL Neut % (Auto) 70.9 (50-75) % Lymph % (Auto) 19.9 L (25-40) % [place] % (Auto) 7.0 (3-14) % Eos % (Auto) 1.5 L (2-4) % Baso % (Auto) 0.7 (0-2) % Neut # (Auto) 8300 H (4384-9925) /uL Lymph # (Auto) 2300 (7492-7002) /uL [place] # (Auto) 800 (0-900) /uL Eos # (Auto) 200 (0-450) /uL Baso # (Auto) 100 (0-100) /uL Sodium 138 (137-145) mmol/L Potassium 3.7 (3.4-5.1) mmol/L Chloride 106 (98-107) mmol/L Carbon Dioxide 21 L (22-32) mmol/L BUN 13 (7-17) mg/dL Creatinine 0.80 (0.52-1.04) mg/dL Estimated GFR > 60.0 (>60) mL/min BUN/Creatinine Ratio 16.3 (6-22) Glucose 104 H (70-100) mg/dL Lactate 0.6 L (0.7-2.1) mmol/L Calcium 9.6 (8.4-10.2) mg/dL Total Bilirubin 0.5 (0.2-1.3) mg/dL AST 30 (14-36) IU/L ALT 19 (9-52) IU/L Alkaline Phosphatase 61 (38-126) U/L Total Protein 7.1 (6.3-8.2) g/dL Albumin 4.2 (3.5-5.0) g/dL Globulin 2.9 (1.7-4.1) g/dL Albumin/Globulin Ratio 1.4 (1.0-2.8) Discharge Plan Departure Patient Disposition: Home Clinical Impression: Dental abscess Discharge Date/Time: 09/12/18 18:52 Interventions: ED Discharge Assessment Last Done: 09/12/18 18:52 Instructions: Tooth Decay, DI for Dental Pain Activity Restrictions/Additional Instructions: Please follow up with your oral surgeon as scheduled next week. Please continue ice as well as rjjz-[id number] medications as needed and able. I have given her prescription of tramadol for pain. This could be sedating and constipating. Do not combine it with other sedating agents. Please monitor for fever, inability keep down fluids, or acute concerns. Please come back to emergency department for any acute concerns. I would expect that your antibiotics needed few more doses in order to take full effect. Please follow up with her dentist as well as your oral surgeon as scheduled. Your lab work today was very reassuring Prescriptions: New tramadol 50 mg tablet 50 mg PO Q6H PRN (Reason: pain) Qty: 10 RF: 0 No Action primidone 50 mg tablet 12.5 mg PO BEDTIME RF: 0 Symbicort 160-4.5 mcg/actuation HFA aerosol inhaler 2 puff Inhalation BID RF: 0 albuterol sulfate [Ventolin HFA] 90 mcg/actuation HFA aerosol inhaler 2 puff Inhalation PRN PRN (Reason: Pain (Scale Score 4-6)) RF: 0 atorvastatin 20 mg tablet 20 mg PO QPM RF: 0 clindamycin HCl 300 mg capsule 300 mg PO Q6H RF: 0 metronidazole 250 mg tablet 250 mg PO Q6H RF: 0 pantoprazole 20 mg tablet,delayed release (DR/EC) 20 mg PO QAM RF: 0 ibuprofen 600 mg tablet 600 mg PO Q4-6H PRN (Reason: pain) RF: 0 <Amber Correia DO - Last Filed: 09/13/18 08:13> Cosign ED Attending Cosjuan danielature Attestation: I was immediately available in the department for consultation. Documentation has been reviewed. I agree with assessment and plan.
[2018-09-12] MEDS: TRAMADOL 50 MG TABLET PO (18:16)
[2018-09-12 18:35] VITALS: BP 113/69; PULSE 81; TEMP 36.8; O2SAT 98
== END 2018-09-12 18:52 | disposition home or self-care (01) ==
PROVIDERS: Emergency Provider Nurse Practitioner Family
DX: K04.7 Periapical abscess without sinus (principal)
CPT/HCPCS: 36591; 80053; 83605; 85025; 96361; 96374; 99283; 99284; J2405

== ENCOUNTER 2019-05-28 02:18 | Emergency (ER) | payer MEDICARE, MEDICAID, SELFPAY ==
--- NOTE | 2019-05-28 02:39 | ED_ITS ---
HPI - Female Genitourinary General Chief complaint: Urogenital-Female Stated complaint: bladder infection/UTI Time Seen by Provider: 05/28/19 02:39 Source: patient Mode of arrival: Ambulatory Limitations: no limitations History of Present Illness HPI Narrative: This is a 49-year-old female who comes to the emergency department with complaint of frequency, urgency and a sense of incomplete emptying this started in the last 12 hours. Patient says she does not have much dysuria but does have discomfort in her suprapubic region. She denies any flank pain. She does have chronic low back pain states no new changes. No fevers or chills. No nausea or vomiting. She typically has constipation but has had looser stools recently. No vaginal bleeding or discharge. Patient states she has had bladder infections in the past but infrequently. She thinks she may have had resistance once in the past but she is unsure for what antibiotics they were switched 2. She does take medication for central tremor, dyslipidemia, Symbicort. She states no antibiotic allergies only to iodine and adhesive. Related Data Home Medications Medication Instructions Recorded Confirmed albuterol sulfate [Ventolin HFA] 2 puff INHALATION PRN PRN 07/15/18 09/12/18 budesonide-formoterol [Symbicort] 2 puff INHALATION BID 07/15/18 09/12/18 primidone 12.5 mg PO BEDTIME 07/15/18 09/12/18 atorvastatin 20 mg PO QPM 09/12/18 09/12/18 clindamycin HCl 300 mg PO Q6H 09/12/18 09/12/18 ibuprofen 600 mg PO Q4-6H PRN 09/12/18 09/12/18 metronidazole 250 mg PO Q6H 09/12/18 09/12/18 pantoprazole 20 mg PO QAM 09/12/18 09/12/18 Previous Rx's Medication Instructions Recorded tramadol 50 mg PO Q6H PRN #10 tab 09/12/18 cephalexin [Keflex] 500 mg PO BID #14 cap 05/28/19 phenazopyridine [Pyridium] 200 mg PO TID PRN #5 tab 05/28/19 Allergies Allergy/AdvReac Type Severity Reaction Status Date / Time adhesive Allergy Rash Verified 07/15/18 16:40 iodine Allergy Verified 07/15/18 16:39 Review of Systems Review of Systems ROS Unobtainable: All systems reviewed & are unremarkable except as noted in HPI and below Patient History Medical History (Updated 05/28/19 @ 03:07 by Nuria Grullon DO) Asthma (Acute) Cervical vertebral fusion (Acute) Dyslipidemia (Acute) Essential tremor (Acute) Surgical History History of bilateral tubal ligation (Acute) History of bladder suspension procedure (Acute) alcohol intake frequency: other Substance Use Type: marijuana Exam Narrative Exam Narrative: GENERAL: Alert and oriented x three, well-nourished female in mild distress. HEENT: Head normocephalic, atraumatic, EOMI, pupils reactive, face symmetric, moist mucous membranes NECK: Supple, full range of motion CARDIOVASCULAR: Regular rate and rhythm without murmurs, rubs or gallops. RESPIRATORY: Breath sounds equal bilaterally, no wheezes rales or rhonchi. ABDOMEN: Soft, nontender. Normoactive bowel sounds all 4 quadrants. No guarding or rebound, rigidity, no mass : No CVA tenderness EXTREMITIES: Normal range of motion, no clubbing or edema. Neurovascularly intact NEUROLOGICAL: Cranial nerves II through XII grossly intact. Moving all extremities SKIN: Warm, dry, no petechiae, no rashes or lesions. Initial Vital Signs Initial Vital Signs: Vital Signs Temperature 97.8 F 05/28/19 02:44 Pulse Rate 86 05/28/19 02:44 Respiratory Rate 18 05/28/19 02:44 Blood Pressure 123/83 05/28/19 02:44 Pulse Oximetry 100 05/28/19 02:44 Course Orders Ordered: ED Orders 05/28/19 02:35 Urinalysis and Microscopic Stat Urine Culture Stat Discontinued Medications Cefazolin Sodium (Keflex 250 Mg Prepack) 1 bottle MISC SEEINSTR ONE Stop: 05/28/19 03:08 Last Admin: 05/28/19 04:04 Dose: 500 mg Documented by: MANDEEP Phenazopyridine HCl (Pyridium 100mg Prepack) 1 bottle MISC SEEINSTR ONE Stop: 05/28/19 02:47 Last Admin: 05/28/19 04:04 Dose: 1 bottle Documented by: MANDEEP Vital Signs Vital signs: Vital Signs - 8 hr 05/28/19 02:44 05/28/19 04:04 Temperature 97.8 F 97.8 F Pulse Rate 86 75 Respiratory Rate 18 20 Blood Pressure 123/83 Blood Pressure [Left Arm] 114/58 L Pulse Oximetry 100 100 MDM - Female Genitourinary Lab Data Labs: Lab Results 05/28/19 Range/Units 02:35 Urine Color Yellow Urine Appearance Sl cloudy Urine pH 6.0 (4.5-8.0) Ur Specific [place] 1.015 (1.000-1.035) Urine Protein Trace H (Negative) Urine Glucose (UA) Negative (Negative) g/dL Urine Ketones Negative (NEGATIVE) Urine Occult Blood 3+ H (Negative) Urine Nitrate Positive H (Negative) Urine Bilirubin Negative (NEGATIVE) Urine Urobilinogen 0.2 (0.2) E.U./dL Ur Leukocyte Esterase 2+ H (NEGATIVE) Urine RBC 30-100/hpf H (0-5/HPF) Urine WBC 10-30/hpf H (0-5/HPF) Ur Squamous Epith Cells 0-1 /hpf (0-5/HPF) Urine Bacteria Moderate (10-30) H (None) Ur Culture Indicated? Specimen cultured MDM Narrative Medical decision making narrative: Patient was given a dose of Pyridium in the department. She has urinary symptoms consistent with UTI. Started on Keflex p.o. given a prescription. Discharge Plan Departure Patient Disposition: Home Clinical Impression: UTI (urinary tract infection) Qualifiers: Urinary tract infection type: acute cystitis Hematuria presence: with hematuria Qualified Code(s): N30.01 - Acute cystitis with hematuria Instructions: DI for Urinary Tract Infection (UTI) Activity Restrictions/Additional Instructions: Follow-up with your physician in the next 3-5 days for recheck if not improving. Continue pyridium 1 tablet every 8 hours as needed for bladder spasm. This medication will make your urine bright orange. Take antibiotics until completely gone. Return to ER for fevers greater 100.4 F, lightheadedness, passing out, worsening abdominal pain, persistent vomiting, black or bloody stools, inability urinate through new or concerning symptoms. Prescriptions: New cephalexin [Keflex] 500 mg capsule 500 mg PO BID Qty: 14 RF: 0 phenazopyridine [Pyridium] 200 mg tablet 200 mg PO TID PRN (Reason: pain) Qty: 5 RF: 0 No Action primidone 50 mg tablet 12.5 mg PO BEDTIME RF: 0 Symbicort 160-4.5 mcg/actuation HFA aerosol inhaler 2 puff Inhalation BID RF: 0 albuterol sulfate [Ventolin HFA] 90 mcg/actuation HFA aerosol inhaler 2 puff Inhalation PRN PRN (Reason: Pain (Scale Score 4-6)) RF: 0 atorvastatin 20 mg tablet 20 mg PO QPM RF: 0 clindamycin HCl 300 mg capsule 300 mg PO Q6H RF: 0 metronidazole 250 mg tablet 250 mg PO Q6H RF: 0 pantoprazole 20 mg tablet,delayed release (DR/EC) 20 mg PO QAM RF: 0 ibuprofen 600 mg tablet 600 mg PO Q4-6H PRN (Reason: pain) RF: 0 tramadol 50 mg tablet 50 mg PO Q6H PRN (Reason: pain) Qty: 10 RF: 0 Referrals: Larry Arevalo [Primary Care Provider] -
[2019-05-28 02:44] VITALS: BP 123/83; PULSE 86; RESP 18; TEMP 36.6; O2SAT 100; BMI 25.0
[2019-05-28 03:00] LABS: Appearance Urine UA SL CLOUDY; Bilirubin Urine UA NEGATIVE (NEGATIVE); Color Urine UA YELLOW; Glucose Urine UA NEGATIVE (Negative); Ketones Urine UA NEGATIVE (NEGATIVE); Leukocyte Esterase Urine UA 2+ (NEGATIVE); Nitrite Urine UA POSITIVE (Negative); Occult Blood Urine UA 3+ (Negative); Protein Urine UA TRACE (Negative); Specific Gravity Urine UA 1.015 (1.000-1.035); Urobilinogen Urine UA 0.2 E.U./dL (0.2)
[2019-05-28 03:01] LABS: RBC Urine 30-100/HPF (0-5/HPF); Squamous Epithelial Cell Urine 0-1 /HPF (0-5/HPF); WBC Urine 10-30/HPF (0-5/HPF)
[2019-05-28 03:02] LABS: Bacteria Urine Moderate (10-30); Culture Indicated Urine Specimen Cultured
[2019-05-28 04:04] VITALS: BP 114/58; PULSE 75; RESP 20; TEMP 36.6; O2SAT 100
[2019-05-28] MEDS: PHENAZOPYRIDINE 100 MG PREPACK 1 BOTTLE MISC (04:04)
[2019-05-28] MEDS: cephALEXin 250 MG PREPACK 1 BOTTLE MISC (04:04)
== END 2019-05-28 04:29 | disposition home or self-care (01) ==
PROVIDERS: Emergency Provider Emergency Medicine; PCP Physician Assistant Medical
DX: N30.01 Acute cystitis with hematuria (principal)
CPT/HCPCS: 81001; 87077; 87086; 87186; 99282; 99283

== ENCOUNTER → 2019-07-23 11:44 | Outpatient (CLI) | payer MEDICARE, MEDICAID, SELFPAY ==
--- NOTE | 2019-07-23 | DI.MRI.S_ITS ---
PROCEDURE: MR SHOULDER LT WO CON INDICATIONS: Muscle weakness (generalized) TECHNIQUE: Noncontrast oblique coronal T2 fast spin echo with fat saturation, oblique sagittal T1 spin echo and T2 fast spin echo with fat saturation, axial T1 spin echo and T2 fast spin echo with fat saturation through the shoulder. COMPARISON: None. FINDINGS: Image quality: Excellent. Rotator cuff: The supraspinatus and subscapularis tendons demonstrate mild thickening, irregularity and increased signal consistent itis. The infraspinatus tendon appear normal.. Sagittal images demonstrate supraspinatus muscle atrophy. Bones and bursae: No bone marrow contusions or fractures. Moderate glenohumeral and mild acromioclavicular joint degeneration. The acromion demonstrates conventional anatomy, without an os acromiale. No pathologic subacromial-subdeltoid or subcoracoid bursal fluid is present. Capsule and soft tissues: In the absence of intra-articular contrast, the labrum and glenohumeral ligaments appear intact. The long head of the biceps tendon demonstrates normal location and morphology. The rotator interval appears normal, without fibrosis. The coracohumeral ligament is normal in thickness. IMPRESSION: 1. Supraspinatus and subscapularis tendinitis. No supraspinatus or subscapularis muscle atrophy. 2. Moderate glenohumeral and mild acromioclavicular joint degeneration. Dictated by: Emeka Acosta M.D. on 07/23/2019 at 13:49 Approved by: Emeka Acosta M.D. on 07/23/2019 at 16:21
== END ==
PROVIDERS: PCP Physician Assistant Medical; Referring Provider Orthopaedic Surgery Sports Medicine; Visit Provider Orthopaedic Surgery Sports Medicine
DX: M62.81 Muscle weakness (generalized) (principal); M19.012 Primary osteoarthritis, left shoulder; M75.92 Shoulder lesion, unspecified, left shoulder
CPT/HCPCS: 73221

== ENCOUNTER → 2019-11-30 11:15 | Outpatient (CLI) | payer MEDICARE, MEDICAID, SELFPAY ==
--- NOTE | 2019-11-30 | DI.MRI.S_ITS ---
PROCEDURE: MR CERVICAL SPINE WO CON INDICATIONS: Cervicalgia TECHNIQUE: Noncontrast sagittal T1 spin echo and T2 fast spin echo, sagittal STIR, foraminal oblique sagittal T2 fast spin echo, and axial gradient echo or T2 fast spin echo through the cervical spine. COMPARISON: [facility], CR, XR CERVICAL SPINE 2 OR 3 VIEWS, 11/20/2019, 16:22. FINDINGS: Image quality: There is artifact associated with the metallic hardware. Alignment and Curvature: There is straightening of the normal cervical lordosis. No focal AP alignment abnormality is seen. Bone Marrow: Marrow demonstrates normal overall signal. Spinal Cord: Visualized spinal cord has normal size and signal. No cerebellar tonsillar herniation. Paraspinous Soft Tissues: No paravertebral masses. Prevertebral soft tissues are normal in thickness. C2-C3: The disc height is well-preserved. Loss of disc signal is seen at this level. No significant neural foraminal or central canal narrowing can be seen. C3-C4: The disc height is well-preserved. Loss of disc signal is seen at this level. Mild to moderate disc osteophyte complex is seen. Moderate to prominent facet hypertrophy is seen. Moderate bilateral neural foraminal narrowing is seen. No significant central canal narrowing is seen. C4-C5: The disc height is well-preserved. Loss of disc signal is seen at this level. Mild to moderate disc osteophyte complex is seen. There is at least moderate facet hypertrophy seen. There is at least moderate right-sided and moderate left-sided neural foraminal narrowing seen. Minimal central canal narrowing is seen. C5-C6: Postoperative changes are seen anteriorly at this level, with an anterior fusion plate and a disc spacer. There is associated susceptibility artifact. There is mild to moderate disc osteophyte complex seen. At least moderate facet hypertrophy is seen. There is at least moderate right-sided and [id number] left-sided neural foraminal narrowing seen. No significant central canal narrowing is seen. C6-C7: The disc level is partially obscured. Moderate loss of disc height is seen. Mild to moderate disc osteophyte complex is seen. Mild facet joint hypertrophy is seen. No significant neural foraminal or central canal narrowing can be seen. C7-T1: The disc height is well-preserved. Loss of disc signal is seen at this level. Mild to moderate disc osteophyte complex is seen, which is eccentric to the right. There is a right foraminal disc osteophyte protrusion, as on series 4, image 34 and on series 6, image 7. There is moderate to severe right-sided and no left-sided neural foraminal narrowing seen. Mild central canal narrowing is seen. IMPRESSION: Unremarkable C5-C6 postoperative hardware. Multiple levels of degenerative change are seen, including at least moderate bilateral neural foraminal narrowing at C4-C5 and moderate to severe right-sided neural foraminal narrowing at C7-T1. Dictated by: Jacoby St M.D. on 12/02/2019 at 9:03 Approved by: Jacoby St M.D. on 12/02/2019 at 9:18
== END ==
PROVIDERS: PCP Physician Assistant; Referring Provider Orthopaedic Surgery; Visit Provider Orthopaedic Surgery
DX: M54.2 Cervicalgia (principal); M47.812 Spondylosis without myelopathy or radiculopathy, cervical region; M48.02 Spinal stenosis, cervical region; M48.03 Spinal stenosis, cervicothoracic region
CPT/HCPCS: 72141

== ENCOUNTER → 2019-12-04 11:22 | Outpatient (CLI) | payer MEDICARE, MEDICAID, SELFPAY ==
--- NOTE | 2019-12-04 | DI.CT.S_ITS ---
PROCEDURE: CT ABDOMEN PELVIS WO/W CON INDICATIONS: Gross hematuria TECHNIQUE: Optional 5 mm thick noncontrast images acquired from the diaphragm to the symphysis pubis. After the administration of intravenous contrast, 5 mm thick images acquired from the diaphragm to the symphysis pubis after a 10-minute delay. 2 mm thick coronal and sagittal reformats were then performed of the kidneys and ureters. For radiation dose reduction, the following was used: automated exposure control, adjustment of mA and/or kV according to patient size. COMPARISON: None. FINDINGS: Image quality: Excellent. Lung bases: Mild dependent atelectasis is seen in the lung bases bilaterally.. Heart size is normal. Urinary system: Both kidneys are normal in size and. 2 mm nonobstructing calculi are seen in the inferior poles of both kidneys. There is no hydronephrosis. No perinephric fat stranding. There is normal bilateral renal enhancement. Renal calyces appear normal in morphology when filled with contrast. Opacified portions of both ureters demonstrate normal caliber. Bladder wall thickness is normal. No calcified bladder stones. Other solid organs: A 7 mm low-density lesion is seen in the left hepatic lobe that is too small to characterize, but most likely represents a benign cyst. The gallbladder appears normal. Biliary system is non dilated. Pancreas enhances normally. Spleen is normal in size and enhancement. There is mild nodular thickening of the left adrenal gland that measures up to 9 mm in greatest dimension which is nonspecific and most likely benign. The right adrenal gland appears normal. Peritoneum and bowel: Bowel loops demonstrate normal wall thickness and caliber. No free fluid or air. Nodes and vessels: No retroperitoneal or mesenteric adenopathy by size criteria. Aorta and inferior vena cava are normal in size. Mild atherosclerotic calcifications are seen in the aorta. Abdominal wall: No ventral hernias. Pelvis: No pathologic free pelvic fluid. No inguinal hernias or adenopathy. The uterus is enlarged by multiple fibroids. A few cysts are seen in the left ovary. Bones: No suspicious bony lesions. No vertebral body compression fractures. IMPRESSION: 1. Nonobstructing renal calculi are seen in the inferior pole of each kidney measuring up to 2 mm in size. There is no hydronephrosis. No urothelial mass is seen. 2. Fibroid uterus. Dictated by: Tanner Lovell M.D. on 12/04/2019 at 11:55 Approved by: Tanner Lovell M.D. on 12/04/2019 at 12:04
== END ==
PROVIDERS: PCP Physician Assistant; Referring Provider Physician Assistant; Visit Provider Urology
DX: R31.0 Gross hematuria (principal); N20.0 Calculus of kidney; D25.9 Leiomyoma of uterus, unspecified; N83.202 Unspecified ovarian cyst, left side
CPT/HCPCS: 74178; Q9967

== ENCOUNTER 2019-12-30 11:22 | Emergency (ER) | payer MEDICARE, MEDICAID, SELFPAY ==
[2019-12-30 11:33] VITALS: BP 151/76; PULSE 86; RESP 16; TEMP 37; O2SAT 99; BMI 26.6
--- NOTE | 2019-12-30 11:52 | ED_ITS ---
HPI - Extremity Problem <Lizy MarinoANTWON - Last Filed: 12/30/19 20:11> General Chief complaint: Extremity Problem,Nontraumatic Stated complaint: 'something wrong with knee,rash on back of leg' Time Seen by Provider: 12/30/19 11:40 Source: patient Mode of arrival: Ambulatory Limitations: no limitations History of Present Illness HPI Narrative: 49yo female with a history of essential tremor and anxiety, presents to the ED for R knee pain x 3 weeks and has gotten worse over the past few days. Patient states pain is worse at the end of the day. 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 Patient states pain is worse suction and extensive use. She notes a small amount of swelling in the knee area. Patient also reports a rash has been on the back of her left knee for the past few weeks. She states it flares up occasionally and often itches. Patient states she has put triple antibiotic ointment on it as well as hydrocortisone cream. She denies any known trauma to the area, she does have a history of eczema on her arms. Patient denies any fevers, chills, nausea, vomiting, diarrhea, chest pain, shortness of breath, or any other concerns. Related Data Home Medications Medication Instructions Recorded Confirmed albuterol sulfate [Ventolin HFA] 2 puff INHALATION PRN PRN 07/15/18 09/12/18 budesonide-formoterol [Symbicort] 2 puff INHALATION BID 07/15/18 09/12/18 primidone 12.5 mg PO BEDTIME 07/15/18 09/12/18 atorvastatin 20 mg PO QPM 09/12/18 09/12/18 clindamycin HCl 300 mg PO Q6H 09/12/18 09/12/18 ibuprofen 600 mg PO Q4-6H PRN 09/12/18 09/12/18 metronidazole 250 mg PO Q6H 09/12/18 09/12/18 pantoprazole 20 mg PO QAM 09/12/18 09/12/18 Previous Rx's Medication Instructions Recorded tramadol 50 mg PO Q6H PRN #10 tab 09/12/18 cephalexin [Keflex] 500 mg PO BID #14 cap 05/28/19 phenazopyridine [Pyridium] 200 mg PO TID PRN #5 tab 05/28/19 mupirocin 1 applictn TOP BID #15 gram 12/30/19 triamcinolone acetonide 1 applictn TOP BID #15 gram 12/30/19 Allergies Allergy/AdvReac Type Severity Reaction Status Date / Time adhesive Allergy Rash Verified 07/15/18 16:40 iodine Allergy Verified 07/15/18 16:39 Review of Systems <ANTWON Alves - Last Filed: 12/30/19 20:11> Review of Systems Narrative: REVIEW OF SYSTEMS: GENERAL: Denies fever or chills. HENT: No head trauma. CARDIOVASCULAR: No chest pain. RESPIRATORY: No shortness of breath or cough. GASTROINTESTINAL: No nausea, vomiting, diarrhea, or constipation. GENITOURINARY: No flank pain. MUSCULOSKELETAL: Complains of right pain, see HPI. INTEGUMENTARY: Reports rash, see HPI. NEURO: No numbness, tingling. PSYCH: No behavior or mood changes. Patient History <ANTWON Alves - Last Filed: 12/30/19 20:11> Medical History Asthma (Acute) Cervical vertebral fusion (Acute) Dyslipidemia (Acute) Essential tremor (Acute) Surgical History History of bilateral tubal ligation (Acute) History of bladder suspension procedure (Acute) Social History Smoking Status: Current every day smoker Smoking Status: Current every day smoker alcohol intake frequency: other Substance Use Type: marijuana Exam <ANTWON Alves - Last Filed: 12/30/19 20:11> Initial Vital Signs Initial Vital Signs: Vital Signs Temperature 98.6 F 12/30/19 11:33 Pulse Rate 86 12/30/19 11:33 Respiratory Rate 16 12/30/19 11:33 Blood Pressure 151/76 H 12/30/19 11:33 Pulse Oximetry 99 12/30/19 11:33 PHYSICAL EXAMINATION: GENERAL: Well-appearing 49-year-old. Awake and alert, oriented. HENT: Normocephalic, atraumatic. EYES: Symmetrical, sclera white, no periorbital swelling. CARDIOVASCULAR: Regular rate. RESPIRATORY: Normal respiratory rate, trachea midline, airway patent. No stridor, nasal flaring or accessory muscle use. MUSCULOSKELETAL: Tenderness to medial aspect of right knee, possibly a small a mount of increased laxity noted to MCL. No swelling noted. No erythema or ecchymosis. Normal gait and coordination. Equal tone and mass bilaterally. EXTREMITIES: CMS intact. No pedal edema. SKIN: Warm, dry, soft, appropriate color for ethnicity. Eczema appearing patches noted to back of left knee, minor erythema and excoriation noted. Cellulitic swelling, increased temp, or oozing. NEURO: Alert and Oriented X 3. No sensory deficits. PSYCH: Appropriate affect and mood. <Jag Briceno MD - Last Filed: 12/31/19 18:04> Initial Vital Signs Initial Vital Signs: Vital Signs Temperature 98.6 F 12/30/19 11:33 Pulse Rate 86 12/30/19 11:33 Respiratory Rate 16 12/30/19 11:33 Blood Pressure 151/76 H 12/30/19 11:33 Pulse Oximetry 99 12/30/19 11:33 Course <ANTWON Alves - Last Filed: 12/30/19 20:11> Orders Ordered: ED Orders 12/30/19 11:50 XR knee RT 3V Stat Vital Signs Vital signs: Vital Signs - 8 hr 12/30/19 13:49 Pulse Rate 72 Blood Pressure 151/76 H Pulse Oximetry 100 <Jag Briceno MD - Last Filed: 12/31/19 18:04> Orders Ordered: ED Orders 12/30/19 11:50 XR knee RT 3V Stat Vital Signs Vital signs: Vital Signs - 8 hr 12/30/19 13:49 Pulse Rate 72 Blood Pressure 151/76 H Pulse Oximetry 100 MDM - Extremity (Nontraumatic) <ANTWON Alves - Last Filed: 12/30/19 20:11> Medical Records Attestation: I reviewed the patient's medical records. Lab Data Attestation: I reviewed the patient's lab results. Imaging Data Extremity x-ray #1: Radiologist's Impression: [address] [address] XRay Report Signed Patient: Megan Trejo [facility]#: [id number] : 1970Acct:[id number] Age/Sex: 49 / FDate of Service: 12/30/19 Loc: ED Accession Number: [id number] Procedure: XR knee RT 3V Ordering Provider: Lizy Marino PROCEDURE: XR KNEE RT 3V INDICATIONS: R medial knee pain TECHNIQUE: 3 views of the knee were acquired. COMPARISON: None. FINDINGS: Bones: No fractures or dislocations. No suspicious bony lesions. Soft tissues: No joint effusion. No suspicious soft tissue calcifications. IMPRESSION: No gross acute right knee fracture or dislocation. Dictated by: Laureano Sheridan M.D. on 12/30/2019 at 12:23 Approved by: Laureano Sheridan M.D. on 12/30/2019 at 12:24 [facility] Narrative Medical decision making narrative: 49-year-old female presents to the emergency department for right knee pain and rash behind left knee. X-rays negative for any fractures, I suspect patient may have knee sprain given history of activity and medial pain with palpation, possible MCL laxity. Patient was encouraged to wear an Wilfredo wrap and take ibuprofen, she was encouraged to follow up with PCP regarding this. Rash appears to be eczema nature, patient was given a steroid cream help with pruritus an exacerbation. Due to excoriation and increasing concerns for developing a further infection, she was given mupirocin. Rash does not appear infected at this time due to lack of surrounding erythema or increased temp. Return precautions given for new or worsening symptoms. Patient agreed to plan of care verbalized understanding Discharge Plan Departure Patient Disposition: Home Clinical Impression: Internal derangement of knee Qualifiers: Laterality: right Qualified Code(s): M23.91 - Unspecified internal derangement of right knee Eczema Qualifiers: Eczema type: unspecified Qualified Code(s): L30.9 - Dermatitis, unspecified Discharge Date/Time: 12/30/19 13:54 Instructions: DI for Atopic Dermatitis-Adult, DI for Knee Pain Activity Restrictions/Additional Instructions: Thank you for entrusting me with your care today. As discussed, your x-rays negative for any fractures. It is possible you may strained or sprained your knee. I suggest wearing an Wilfredo bandage or a knee brace. Additionally, it appears you have eczema. I have given you a steroid cream and antibiotic ointment to apply twice a day for the next few weeks to help with symptoms. Your prescriptions were sent to [facility] in [place]. Please follow-up with your primary care provider in the next 1-2 weeks for further evaluation. Return emergency department for any new or worsening symptoms. Prescriptions: New mupirocin 2 % ointment 1 applictn TOP BID Qty: 15 RF: 0 triamcinolone acetonide 0.1 % ointment 1 applictn TOP BID Qty: 15 RF: 0 No Action primidone 50 mg tablet 12.5 mg PO BEDTIME RF: 0 Symbicort 160-4.5 mcg/actuation HFA aerosol inhaler 2 puff Inhalation BID RF: 0 albuterol sulfate [Ventolin HFA] 90 mcg/actuation HFA aerosol inhaler 2 puff Inhalation PRN PRN (Reason: Pain (Scale Score 4-6)) RF: 0 atorvastatin 20 mg tablet 20 mg PO QPM RF: 0 clindamycin HCl 300 mg capsule 300 mg PO Q6H RF: 0 metronidazole 250 mg tablet 250 mg PO Q6H RF: 0 pantoprazole 20 mg tablet,delayed release (DR/EC) 20 mg PO QAM RF: 0 ibuprofen 600 mg tablet 600 mg PO Q4-6H PRN (Reason: pain) RF: 0 tramadol 50 mg tablet 50 mg PO Q6H PRN (Reason: pain) Qty: 10 RF: 0 cephalexin [Keflex] 500 mg capsule 500 mg PO BID Qty: 14 RF: 0 phenazopyridine [Pyridium] 200 mg tablet 200 mg PO TID PRN (Reason: pain) Qty: 5 RF: 0 Referrals: Jessica Blake PA-C [Primary Care Provider] - <Jag Briceno MD - Last Filed: 12/31/19 18:04> [facility] ED Attending Jessieature Attestation: I was immediately available in the department for consultation. This documentation has been reviewed and I agree with assessment and plan. Supervised by Jag Briceno MD
[2019-12-30 13:49] VITALS: BP 151/76; PULSE 72; O2SAT 100
== END 2019-12-30 13:54 | disposition home or self-care (01) ==
PROVIDERS: Emergency Provider Nurse Practitioner; PCP Physician Assistant
DX: M23.91 Unspecified internal derangement of right knee (principal); L30.9 Dermatitis, unspecified
CPT/HCPCS: 73562; 99282; 99283

== ENCOUNTER 2020-08-28 14:04 | Emergency (ER) | payer MEDICARE, MEDICAID, SELFPAY ==
[2020-08-28] VITALS (7 sets, daily range): BP systolic 111–137; BP diastolic 67–77; PULSE 77–90; RESP 16–24; TEMP 37.3; O2SAT 93–99; BMI 27.4
[2020-08-28 14:37] LABS: Alanine Aminotransferase 13 IU/L (<35); Albumin 4.4 g/dL (3.5-5.0); Albumin Globulin Ratio 1.5 (1.0-2.8); Alkaline Phosphatase 82 U/L (38-126); Aspartate Aminotransferase 17 IU/L (14-36); BUN Creatinine Ratio 15.3 (6-22); Bilirubin Total 0.5 mg/dL (0.2-1.3); Blood Urea Nitrogen 11 mg/dL (7-17); Calcium 9.5 mg/dL (8.4-10.2); Carbon Dioxide 22 mmol/L (22-32); Chloride 106 mmol/L (98-107); Estimated Glomerular Filt Rate > 60.0 mL/min (>60); Globulin 2.9 g/dL (1.7-4.1); Glucose 95 mg/dL (70-100); HEMOLYSIS < 15 (0-50); Hematocrit 44.6 % (36-46); Hemoglobin 15.2 g/dL (12.0-16.0); Lipase 47 U/L (23-300); Mean Corpuscular Volume 88.1 fL (80-100); Red Blood Cell Count 5.06 X10^6/uL (4.0-5.2); Red Cell Distribution Width 14.6 % (11.6-14.8); Sodium 135 mmol/L (137-145); Total Protein 7.3 g/dL (6.3-8.2); White Blood Cell Count 12.6 X10^3/uL (4.5-11.0)
[2020-08-28 14:40] LABS: Add Manual Diff / Slide Review YES
[2020-08-28 15:08] LABS: Neutrophils Absolute Manual 9072 /uL (3000-5900); RBC Morphology Normal Morphology; Total Cells Counted 100
[2020-08-28 15:09] LABS: Platelet Estimate Adequate on smear
[2020-08-28 15:11] LABS: Platelet Count 164 X10^3/uL (150-400)
--- NOTE | 2020-08-28 15:22 | ED.ABDPAIN ---
HPI - Abdominal Pain General Chief Complaint: Abdominal Pain Stated Complaint: severe abd cramping Time Seen by Provider: 08/28/20 14:21 Source: patient Mode of arrival: Ambulatory Limitations: no limitations History of Present Illness HPI narrative: Patient is a 50-year-old female who has intermittent abdominal pain still being worked up. She says their thoughts of irritable bowel syndrome Crohn's disease and ulcerative colitis. She frequently gets episodes she has had scans before. She has an episode now started last evening she felt a small tones. She has intense pain she says previously they noted patient usually Protonix help. She took Protonix night seem to help. She denies any fever chills no nausea or vomiting. This is similar to her previous episodes. MD complaint: abdominal pain Onset (ago): day(s) (1) Pain Consistency: constant Location: periumbilical Quality: cramping, stabbing and sharp Radiation: none Migration to: no migration Relieving factors: nothing Exacerbating factors: nothing Related Data Home Medications Medication Instructions Recorded Confirmed albuterol sulfate [Ventolin HFA] 2 puff INHALATION PRN PRN 07/15/18 09/12/18 budesonide-formoterol [Symbicort] 2 puff INHALATION BID 07/15/18 09/12/18 primidone 12.5 mg PO BEDTIME 07/15/18 09/12/18 atorvastatin 20 mg PO QPM 09/12/18 09/12/18 clindamycin HCl 300 mg PO Q6H 09/12/18 09/12/18 ibuprofen 600 mg PO Q4-6H PRN 09/12/18 09/12/18 metronidazole 250 mg PO Q6H 09/12/18 09/12/18 pantoprazole 20 mg PO QAM 09/12/18 09/12/18 Previous Rx's Medication Instructions Recorded tramadol 50 mg PO Q6H PRN #10 tab 09/12/18 cephalexin [Keflex] 500 mg PO BID #14 cap 05/28/19 phenazopyridine [Pyridium] 200 mg PO TID PRN #5 tab 05/28/19 mupirocin 1 applictn TOP BID #15 gram 12/30/19 triamcinolone acetonide 1 applictn TOP BID #15 gram 12/30/19 Allergies Allergy/AdvReac Type Severity Reaction Status Date / Time adhesive Allergy Rash Verified 08/28/20 14:18 iodine Allergy Verified 08/28/20 14:18 Review of Systems Review of Systems Narrative: GENERAL: Denies chills, fatigue, malaise, fever, sweats, travel HEENT: Denies sinus pain, ear pain, sore throat, difficulty swallowing, neck pain RESPIRATORY: Denies dyspnea, cough, wheezing, hemoptysis, sputum. CARDIOVASCULAR: Denies chest pain, palpitations, orthopnea, edema GASTROINTESTINAL: See HPI : Denies dysuria, frequency, incontinence, hematuria, urinary retention, flank pain. MUSCULOSKELETAL: Denies weakness, joint pain, or bony pain SKIN: No rash, no erythema, no pruritus NEUROLOGIC: Denies weakness, dizziness, headache, numbness, change in speech, confusion PSYCHIATRIC: No concerning psychosocial issues. 12 point review of systems is negative except for those stated above and HPI Patient History Medical History (Updated 08/28/20 @ 17:31 by Katerina Dang RN) Asthma Cervical vertebral fusion Dyslipidemia Essential tremor Surgical History History of bilateral tubal ligation History of bladder suspension procedure Social History Smoking Status: Current every day smoker Smoking Status: Current every day smoker tobacco type: cigarettes alcohol intake frequency: other Substance Use Type: marijuana Exam Initial Vital Signs Initial Vital Signs: Vital Signs Temperature 99.1 F 08/28/20 14:16 Pulse Rate 87 08/28/20 14:16 Respiratory Rate 16 08/28/20 14:16 Blood Pressure 137/77 08/28/20 14:16 Pulse Oximetry 98 08/28/20 14:16 GENERAL: Well-appearing, well-nourished and in no acute distress. HEENT: Head atraumatic,EOMI, pupils reactive, face symmetric, moist mucous membranes CARDIOVASCULAR: Regular rate and rhythm without murmurs, rubs or gallops. RESPIRATORY: Breath sounds equal bilaterally, no wheezes rales or rhonchi. ABDOMEN: Soft, mild tenderness epigastric negative Rodriguez's sign no distension Normoactive bowel sounds all 4 quadrants. No guarding or rebound. EXTREMITIES: Normal range of motion, no clubbing or edema. Neurovascularly intact NEUROLOGICAL: Alert and oriented x4.Normal gait and speech. SKIN: Warm, dry, no laceration, no petechiae, no rashes or lesions. Course Orders Ordered: ED Orders 08/28/20 14:20 Complete Blood Count AUTO DIFF Stat Comprehensive Metabolic Panel Stat Lipase Stat 08/28/20 14:25 EKG-12 Lead Stat 08/28/20 15:22 XR abdomen min 2V Stat Discontinued Medications Ketorolac Tromethamine (Ketorolac 30 Mg/Ml Vial) 30 mg IV NOW ONE Stop: 08/28/20 15:19 Last Admin: 08/28/20 16:07 Dose: 30 mg Documented by: ATAYLOR Pantoprazole Sodium (Pantoprazole 40 Mg Vial) 40 mg IV NOW ONE Stop: 08/28/20 15:19 Last Admin: 08/28/20 16:09 Dose: 40 mg Documented by: ATAMAGGIEOR Vital Signs Vital signs: Vital Signs - 8 hr 08/28/20 14:16 08/28/20 14:30 08/28/20 15:00 Temperature 99.1 F Pulse Rate 90 85 83 Respiratory Rate 16 24 Blood Pressure 137/77 Pulse Oximetry 99 98 93 08/28/20 15:30 08/28/20 16:00 08/28/20 16:30 Temperature Pulse Rate 83 80 80 Respiratory Rate 17 19 Blood Pressure 123/69 132/70 111/70 Pulse Oximetry 95 98 97 08/28/20 17:00 Temperature Pulse Rate 77 Respiratory Rate 16 Blood Pressure 113/67 Pulse Oximetry 97 MDM - Abdominal Pain Lab Data Attestation: I reviewed the patient's lab results. Result diagrams: 08/28/20 14:20 08/28/20 14:20 Labs: Lab Results 08/28/20 08/28/20 Range/Units 14:20 14:20 WBC 12.6 H (4.5-11.0) X10^3/uL RBC 5.06 (4.0-5.2) X10^6/uL Hgb 15.2 (12.0-16.0) g/dL Hct 44.6 (36-46) % MCV 88.1 (80-100) fL MCH 30.0 (26-34) PG MCHC 34.0 (30-36) % RDW 14.6 (11.6-14.8) % Plt Count 164 (150-400) X10^3/uL Neut % (Auto) Not Reportable Lymph % (Auto) Not Reportable [place] % (Auto) Not Reportable Eos % (Auto) Not Reportable Baso % (Auto) Not Reportable Lymph # (Auto) Not Reportable [place] # (Auto) Not Reportable Baso # (Auto) Not Reportable Total Counted 100 Seg Neutrophils % 72.0 H (38-70) % Lymphocytes % (Manual) 22.0 L (25-45) % Monocytes % (Manual) 4.0 (2-11) % Eosinophils % (Manual) 1.0 L (2-4) % Basophils % (Manual) 1.0 (0-1) % Neutrophils # (Manual) 9072 H (2631-7977) /uL Platelet Estimate Adequate on smear Plt Morphology Comment RBC Morphology Normal morphology Sodium 135 L (137-145) mmol/L Potassium 4.0 (3.4-5.1) mmol/L Chloride 106 (98-107) mmol/L Carbon Dioxide 22 (22-32) mmol/L BUN 11 (7-17) mg/dL Creatinine 0.72 (0.52-1.04) mg/dL Estimated GFR > 60.0 (>60) mL/min BUN/Creatinine Ratio 15.3 (6-22) Glucose 95 (70-100) mg/dL Calcium 9.5 (8.4-10.2) mg/dL Total Bilirubin 0.5 (0.2-1.3) mg/dL AST 17 (14-36) IU/L ALT 13 (<35) IU/L Alkaline Phosphatase 82 (38-126) U/L Total Protein 7.3 (6.3-8.2) g/dL Albumin 4.4 (3.5-5.0) g/dL Globulin 2.9 (1.7-4.1) g/dL Albumin/Globulin Ratio 1.5 (1.0-2.8) Lipase 47 (23-300) U/L Point of care testing: Urine Dip Bedside Urine Glucose Negative Bedside Urine Bilirubin - Negative Bedside Urine Ketone - Negative Urine Specific [place] 1.015 Bedside Urine Occult Blood - Negative Bedside Urine pH 7.5 Bedside Urine Protein - Negative Bedside Urine Urobilinogen - Negative Bedside Urine Nitrite - Negative Bedside Urine Leukocytes - Negative Esterase Imaging Data Abdominal x-ray: Radiologist's Impression: PROCEDURE: XR ABDOMEN MIN 2V INDICATIONS: Abdominal pain TECHNIQUE: 2 views of the abdomen were acquired. COMPARISON: None. FINDINGS: Surgical changes and devices: None. Bowel: No pneumoperitoneum. The bowel gas pattern is normal. Soft tissues: No masses; visualized solid organ contours appear normal in size. No suspicious abdominal calcifications. Bones: No suspicious bony abnormalities. IMPRESSION: No acute finding. Dictated by: Gordo Boyle M.D. on 08/28/2020 at 15:52 ECG Data Attestation: I personally reviewed and interpreted this ECG as follows: Prior ECG tracings: available for review Interpretation: Sinus rhythm rate 87 p.r. interval 128 QRS [address] changes or T-wave inversions similar to his previous EKG to [facility] Narrative Medical decision making narrative: Patient has chronic ongoing abdominal pain she this feels similar to previous episodes. She is feeling better after Protonix and Toradol. Blood work is overall reassuring old x-ray does not show any obstruction or free air at this time I do not believe her to need a CT abdomen. Discharge Plan Departure Patient Disposition: Home Clinical Impression: Essential tremor Abdominal pain Qualifiers: Abdominal location: generalized Qualified Code(s): R10.84 - Generalized abdominal pain Instructions: Acute Abdominal Pain Activity Restrictions/Additional Instructions: *You have been diagnosed with abdominal pain *What to do: At this time I recommend he get a referral to a GI provider for further workup. You also likely need a colonoscopy *Continue to take medications as directed Protonix daily as prescribed *Follow up with your primary care provider in 2-3 days *Return to ER if you should have increasing pain, bloody stools, nausea or vomiting or any new, worsening or concerning symptoms Prescriptions: No Action primidone 50 mg tablet 12.5 mg PO BEDTIME RF: 0 Symbicort 160-4.5 mcg/actuation HFA aerosol inhaler 2 puff Inhalation BID RF: 0 albuterol sulfate [Ventolin HFA] 90 mcg/actuation HFA aerosol inhaler 2 puff Inhalation PRN PRN (Reason: Pain (Scale Score 4-6)) RF: 0 atorvastatin 20 mg tablet 20 mg PO QPM RF: 0 clindamycin HCl 300 mg capsule 300 mg PO Q6H RF: 0 metronidazole 250 mg tablet 250 mg PO Q6H RF: 0 pantoprazole 20 mg tablet,delayed release (DR/EC) 20 mg PO QAM RF: 0 ibuprofen 600 mg tablet 600 mg PO Q4-6H PRN (Reason: pain) RF: 0 tramadol 50 mg tablet 50 mg PO Q6H PRN (Reason: pain) Qty: 10 RF: 0 cephalexin [Keflex] 500 mg capsule 500 mg PO BID Qty: 14 RF: 0 phenazopyridine [Pyridium] 200 mg tablet 200 mg PO TID PRN (Reason: pain) Qty: 5 RF: 0 mupirocin 2 % ointment 1 applictn TOP BID Qty: 15 RF: 0 triamcinolone acetonide 0.1 % ointment 1 applictn TOP BID Qty: 15 RF: 0 Referrals: Jessica Blake PA-C [Primary Care Provider] -
[2020-08-28] MEDS: KETOROLAC 30 MG/ML VIAL IV (16:07)
[2020-08-28] MEDS: PANTOPRAZOLE 40 MG VIAL IV (16:09)
== END 2020-08-28 17:31 | disposition home or self-care (01) ==
PROVIDERS: Emergency Provider Emergency Medicine; PCP Physician Assistant
DX: G25.0 Essential tremor (principal); R10.84 Generalized abdominal pain
CPT/HCPCS: 36415; 74019; 80053; 81003; 83690; 85007; 85025; 93005; 96374; 96375; 99284; C9113; J1885

== ENCOUNTER 2021-02-10 00:58 | Emergency (ER) | payer MEDICARE, MEDICAID, SELFPAY ==
[2021-02-10 01:03] VITALS: BP 190/88; PULSE 82; RESP 20; TEMP 36.7; O2SAT 100
[2021-02-10 01:26] LABS: Appearance Urine UA CLOUDY; Bilirubin Urine UA NEGATIVE (NEGATIVE); Color Urine UA YELLOW; Glucose Urine UA NEGATIVE (Negative); Ketones Urine UA TRACE (NEGATIVE); Leukocyte Esterase Urine UA 1+ (NEGATIVE); Nitrite Urine UA NEGATIVE (Negative); Occult Blood Urine UA 3+ (Negative); Protein Urine UA TRACE (Negative); Specific Gravity Urine UA 1.025 (1.000-1.035); Urobilinogen Urine UA 0.2 E.U./dL (0.2)
[2021-02-10 01:28] LABS: pH Urine UA 5.5 (4.5-8.0)
[2021-02-10 01:43] LABS: Bacteria Urine Moderate (10-30); Culture Indicated Urine Specimen Cultured; RBC Urine 5-10/HPF (0-5/HPF); Squamous Epithelial Cell Urine 1-5 /HPF (0-5/HPF); WBC Urine 30-100/HPF (0-5/HPF)
--- NOTE | 2021-02-10 02:21 | ED.FEMALEGU ---
HPI - Female Genitourinary General Chief complaint: Urogenital-Female Stated complaint: bladder pain x4 m Time Seen by Provider: 02/10/21 02:17 Source: patient Mode of arrival: Ambulatory Limitations: no limitations History of Present Illness HPI Narrative: The patient is a 50-year-old female with history of asthma presenting with UTI like symptoms. She has had symptoms ongoing for about the last 4 hours. Painful frequent urination. She is worried because she needs to make Thanksgiving dinner for 3 families. She has some mild abdominal cramping she says it is really not too bad. Difficult to tell if she has had fever or chills because she is going through menopause. She has chronic ongoing back pain but denies any flank pain. No nausea or vomiting. Related Data Home Medications Medication Instructions Recorded Confirmed albuterol sulfate 90 mcg/actuation 2 puff INHALATION PRN PRN 07/15/18 09/12/18 aerosol inhaler budesonide-formoterol HFA 160 2 puff INHALATION BID 07/15/18 09/12/18 mcg-4.5 mcg/actuation aerosol inhaler primidone 50 mg tablet 12.5 mg PO BEDTIME 07/15/18 09/12/18 atorvastatin 20 mg tablet 20 mg PO QPM 09/12/18 09/12/18 clindamycin HCl 300 mg capsule 300 mg PO Q6H 09/12/18 09/12/18 ibuprofen 600 mg tablet 600 mg PO Q4-6H PRN 09/12/18 09/12/18 metronidazole 250 mg tablet 250 mg PO Q6H 09/12/18 09/12/18 pantoprazole 20 mg tablet,delayed 20 mg PO QAM 09/12/18 09/12/18 release Previous Rx's Medication Instructions Recorded tramadol 50 mg tablet 50 mg PO Q6H PRN #10 tab 09/12/18 cephalexin 500 mg capsule (Keflex) 500 mg PO BID #14 cap 05/28/19 phenazopyridine 200 mg tablet 200 mg PO TID PRN #5 tab 05/28/19 (Pyridium) mupirocin 2 % topical ointment 1 applictn TOP BID #15 gram 12/30/19 triamcinolone acetonide 0.1 % 1 applictn TOP BID #15 gram 12/30/19 topical ointment phenazopyridine 200 mg tablet 200 mg PO TID PRN #6 tab 02/10/21 (Pyridium) sulfamethoxazole 800 1 tab PO BID 5 Days #10 tab 02/10/21 mg-trimethoprim 160 mg tablet (Bactrim DS) Allergies Allergy/AdvReac Type Severity Reaction Status Date / Time adhesive Allergy Rash Verified 08/28/20 14:18 iodine Allergy Verified 08/28/20 14:18 Review of Systems Review of Systems Narrative: GENERAL: Denies chills,fever HEENT: Denies throat pain RESPIRATORY: Denies dyspnea, cough, wheezing CARDIOVASCULAR: Denies chest pain, palpitations : See HPI GASTROINTESTINAL: Denies nausea, vomiting MUSCULOSKELETAL: Denies extremity pain, injury SKIN: No rash, no laceration, no pruritus NEUROLOGIC: Denies weakness, dizziness, headache, numbness 8 point review of systems is negative except for those stated above and HPI Patient History Medical History (Updated 02/10/21 @ 02:23 by Amber Correia DO) Asthma Cervical vertebral fusion Dyslipidemia Essential tremor Surgical History History of bilateral tubal ligation History of bladder suspension procedure tobacco type: cigarettes alcohol intake frequency: other Substance Use Type: marijuana Exam Initial Vital Signs Initial Vital Signs: Vital Signs Temperature 98.1 F 02/10/21 01:03 Pulse Rate 82 02/10/21 01:03 Respiratory Rate 20 02/10/21 01:03 Blood Pressure 190/88 H 02/10/21 01:03 Pulse Oximetry 100 02/10/21 01:03 GENERAL: Well-appearing, well-nourished and in no acute distress. CARDIOVASCULAR: peripheral pulses in tact, cap refill <2 sec RESPIRATORY: No respiratory distress, speaks in full sentences without difficulty ABDOMEN: Soft, nontender, no guarding or rebound : No Flank pain EXTREMITIES: Normal range of motion, no clubbing or edema. Neurovascularly intact NEUROLOGICAL: Cranial nerves II through XII grossly intact. Normal gait and speech. SKIN: Warm, dry, no petechiae, no rashes or lesions. Course Orders Ordered: ED Orders 02/10/21 01:15 Urinalysis and Microscopic Stat Urine Culture Stat Discontinued Medications Phenazopyridine HCl (Phenazopyridine 100 Mg Tablet) 200 mg PO NOW ONE Stop: 02/10/21 02:26 Last Admin: 02/10/21 02:29 Dose: 200 mg Documented by: ARUN Trimethoprim/Sulfamethoxazole (Trimeth/Sulfa 160/800 Prepack) 1 bottle MISC SEEINSTR ONE Stop: 02/10/21 02:26 Last Admin: 02/10/21 02:36 Dose: Not Given Documented by: ARUN Trimethoprim/Sulfamethoxazole (Trimeth/Sulfa 160/800 (Ds) Tablet) 1 tab PO NOW ONE Stop: 02/10/21 02:34 Last Admin: 02/10/21 02:36 Dose: 1 tab Documented by: ARUN Vital Signs Vital signs: Vital Signs - 8 hr 02/10/21 01:03 02/10/21 02:46 Temperature 98.1 F Pulse Rate 82 72 Respiratory Rate 20 18 Blood Pressure 190/88 H 124/75 Pulse Oximetry 100 99 MDM - Female Genitourinary Lab Data Labs: Lab Results 02/10/21 Range/Units 01:15 Urine Color Yellow Urine Appearance Cloudy Urine pH 5.5 (4.5-8.0) Ur Specific [place] 1.025 (1.000-1.035) Urine Protein Trace H (Negative) Urine Glucose (UA) Negative (Negative) g/dL Urine Ketones Trace H (NEGATIVE) Urine Occult Blood 3+ H (Negative) Urine Nitrate Negative (Negative) Urine Bilirubin Negative (NEGATIVE) Urine Urobilinogen 0.2 (0.2) E.U./dL Ur Leukocyte Esterase 1+ H (NEGATIVE) Urine RBC 5-10/hpf H (0-5/HPF) Urine WBC 30-100/hpf H (0-5/HPF) Ur Squamous Epith Cells 1-5 /hpf (0-5/HPF) Urine Bacteria Moderate (10-30) H (None) Ur Culture Indicated? Specimen cultured MDM Narrative Medical decision making narrative: Patient overall appears well symptoms ongoing for only a couple of hours, is not septic. Previous culture showed multiple sensitivity with resistance to ampicillin. Started on Bactrim Discharge Plan Departure Patient Disposition: Home Clinical Impression: UTI (urinary tract infection) Activity Restrictions/Additional Instructions: *You have been diagnosed with UTI *What to do: *Continue to take medications as directed--> SENT TO [facility] IN [place] Bactrim 1 tablet twice a day for 5 days Pyridium 200 mg 3 times a day only if needed for painful frequent urination *Follow up with your primary care provider in 2-3 days *Return to ER if you should have back pain, nausea, vomiting, abdominal pain or any new, worsening or concerning symptoms Prescriptions: New sulfamethoxazole-trimethoprim [Bactrim DS] 800-160 mg tablet 1 tab PO BID 5 Days Qty: 10 0RF phenazopyridine [Pyridium] 200 mg tablet 200 mg PO TID PRN (Reason: pain) Qty: 6 0RF No Action primidone 50 mg tablet 12.5 mg PO BEDTIME 0RF Symbicort 160-4.5 mcg/actuation HFA aerosol inhaler 2 puff Inhalation BID 0RF albuterol sulfate [Ventolin HFA] 90 mcg/actuation HFA aerosol inhaler 2 puff Inhalation PRN PRN (Reason: Pain (Scale Score 4-6)) 0RF atorvastatin 20 mg tablet 20 mg PO QPM 0RF Label Comments: TAKE 1 TABLET BY MOUTH ONCE DAILY IN THE EVENING FOR CHOLESTEROL clindamycin HCl 300 mg capsule 300 mg PO Q6H 0RF Label Comments: TAKE 1 CAPSULE BY MOUTH EVERY 6 HOURS metronidazole 250 mg tablet 250 mg PO Q6H 0RF Label Comments: TAKE 1 TABLET BY MOUTH EVERY 6 HOURS pantoprazole 20 mg tablet,delayed release (DR/EC) 20 mg PO QAM 0RF Label Comments: TAKE 1 TABLET BY MOUTH ONCE DAILY IN THE MORNING ibuprofen 600 mg tablet 600 mg PO Q4-6H PRN (Reason: pain) 0RF Label Comments: TAKE 1 TABLET BY MOUTH EVERY 4 TO 6 HOURS DIRECTED tramadol 50 mg tablet 50 mg PO Q6H PRN (Reason: pain) Qty: 10 0RF cephalexin [Keflex] 500 mg capsule 500 mg PO BID Qty: 14 0RF phenazopyridine [Pyridium] 200 mg tablet 200 mg PO TID PRN (Reason: pain) Qty: 5 0RF mupirocin 2 % ointment 1 applictn TOP BID Qty: 15 0RF triamcinolone acetonide 0.1 % ointment 1 applictn TOP BID Qty: 15 0RF Referrals: Jessica Blake PA-C [Primary Care Provider] -
[2021-02-10] MEDS: PHENAZOPYRIDINE 100 MG TABLET 200 MG PO (02:29)
[2021-02-10] MEDS: TRIMETH/SULFA 160/800 (DS) TABLET 1 TAB PO (02:36)
[2021-02-10 02:46] VITALS: BP 124/75; PULSE 72; RESP 18; O2SAT 99
== END 2021-02-10 02:47 | disposition home or self-care (01) ==
PROVIDERS: Emergency Provider Emergency Medicine; PCP Physician Assistant
DX: N39.0 Urinary tract infection, site not specified (principal); Z16.11 Resistance to penicillins
CPT/HCPCS: 81001; 87086; 99283

== ENCOUNTER 2021-04-07 19:17 | Emergency (ER) | payer MEDICARE, MEDICAID, SELFPAY ==
[2021-04-07 19:20] VITALS: BP 136/77; PULSE 93; RESP 22; TEMP 37.1; O2SAT 98
--- NOTE | 2021-04-07 21:44 | ED.BACK ---
HPI - Back Pain/Injury General Chief Complaint: Back Pain/Injury Stated Complaint: cant move neck Time Seen by Provider: 04/07/21 21:43 Source: patient History of Present Illness HPI Narrative: Patient is a 50-year-old female with history of chronic neck pain and multiple neck surgeries presenting with neck pain. She says she woke up this morning and is unable to move her neck. She has pain on her left side. She denies any injury. He feels like her left arm is little bit weaker she has chronic numbness in her fingertips bilaterally which remained unchanged. Feet taken ibuprofen without any relief. She has previously taken Flexeril for spasm it only helped mildly. Related Data Home Medications Medication Instructions Recorded Confirmed budesonide-formoterol HFA 160 2 puff INHALATION BID 07/15/18 03/02/21 mcg-4.5 mcg/actuation aerosol inhaler primidone 50 mg tablet 12.5 mg PO BEDTIME 07/15/18 03/02/21 ibuprofen 600 mg tablet 600 mg PO Q4-6H PRN 09/12/18 09/12/18 pantoprazole 20 mg tablet,delayed 20 mg PO QAM PRN 03/02/21 03/02/21 release Previous Rx's Medication Instructions Recorded mupirocin 2 % topical ointment 1 applictn TOP BID #15 gram 12/30/19 albuterol sulfate 90 mcg/actuation 2 puff INHALATION Q4H PRN #8.5 g 04/05/21 aerosol inhaler hydrocodone 5 mg-acetaminophen 325 1 tab PO Q6H PRN #10 tab 04/07/21 mg tablet methocarbamol 750 mg tablet 1,500 mg PO Q12H PRN #20 tab 04/07/21 Allergies Allergy/AdvReac Type Severity Reaction Status Date / Time fluticasone Allergy Severe Migraine Verified 03/02/21 15:19 [From Advair Diskus] salmeterol Allergy Severe Migraine Verified 03/02/21 15:19 [From Advair Diskus] adhesive Allergy Rash Verified 03/02/21 15:18 iodine Allergy Verified 03/02/21 15:18 Review of Systems Review of Systems Narrative: GENERAL: Denies chills, fatigue, malaise, fever, sweats, travel HEENT: Denies sinus pain, ear pain, sore throat, difficulty swallowing, neck pain RESPIRATORY: Denies dyspnea, cough, wheezing, hemoptysis, sputum. CARDIOVASCULAR: Denies chest pain, palpitations, orthopnea, edema GASTROINTESTINAL: Denies nausea, vomiting, abdominal pain, diarrhea, constipation, melena. : Denies dysuria, frequency, incontinence, hematuria, urinary retention, flank pain. MUSCULOSKELETAL: See HPI SKIN: No rash, no erythema, no pruritus NEUROLOGIC: Denies weakness, dizziness, headache, numbness, change in speech, confusion PSYCHIATRIC: No concerning psychosocial issues. 12 point review of systems is negative except for those stated above and HPI Patient History Medical History (Updated 04/07/21 @ 22:02 by Amber Correia DO) Agoraphobia Asthma Cervical cancer (~1993) Cervical vertebral fusion Chronic back pain Chronic shoulder pain COPD (chronic obstructive pulmonary disease) (~2015) Crohn's disease (~2002) Depression Dyslipidemia Essential tremor Frequent UTI Headache History of urinary incontinence Migraines PTSD (post-traumatic stress disorder) Social anxiety disorder Surgical History (Updated 03/15/21 @ 21:07 by Italia Mims) Anesthesia History of bilateral tubal ligation History of bladder suspension procedure History of endometrial ablation History of fusion of cervical spine Family History (Updated 03/15/21 @ 21:09 by Italia Mims) Mother Cancer Grandfather History of heart disease Grandmother No problems noted. Grandfather Hyperlipidemia Hypertension Stroke Grandmother Hypertension Hyperlipidemia Social History Smoking Status: Current every day smoker Smoking Status: Current every day smoker tobacco type: cigarettes alcohol intake frequency: other Substance Use Type: marijuana Exam Initial Vital Signs Initial Vital Signs: Vital Signs Temperature 98.7 F 04/07/21 19:20 Pulse Rate 93 H 04/07/21 19:20 Respiratory Rate 22 04/07/21 19:20 Blood Pressure 136/77 04/07/21 19:20 Pulse Oximetry 98 04/07/21 19:20 GENERAL: Alert female 42 years old appears in pain NECK: Significant decreased range of motion mostly with rotation. Tender to touch. CARDIOVASCULAR: peripheral pulses in tact, cap refill <2 sec RESPIRATORY: No respiratory distress, speaks in full sentences without difficulty ABDOMEN: Soft, nontender, no guarding or rebound EXTREMITIES: Normal range of motion, no clubbing or edema. Neurovascularly intact NEUROLOGICAL: Cranial nerves II through XII grossly intact. Normal gait and speech. Slight weakness noted in left arm SKIN: Warm, dry, no petechiae, no rashes or lesions. Course Orders Ordered: Discontinued Medications Hydrocodone Bitart/Acetaminophen (Hydrocodone/Acet 5/325 Tablet) 2 tab PO NOW ONE Stop: 04/07/21 21:52 Last Admin: 04/07/21 22:06 Dose: 2 tab Documented by: ARUN Diazepam (Diazepam 5 Mg Tablet) 5 mg PO NOW ONE Stop: 04/07/21 21:52 Last Admin: 04/07/21 22:07 Dose: 5 mg Documented by: ARUN Vital Signs Vital signs: Vital Signs - 8 hr 04/07/21 19:20 04/07/21 22:21 Temperature 98.7 F Pulse Rate 93 H 84 Respiratory Rate 22 18 Blood Pressure 136/77 130/70 Pulse Oximetry 98 98 Discharge Plan Departure Patient Disposition: Home Clinical Impression: Cervical paraspinal muscle spasm Instructions: DI for Muscle Spasm Activity Restrictions/Additional Instructions: *You have been diagnosed with cervical strain *What to do: Recommend heat and light stretching. Hopefully this will help your muscles relax. *Continue to take medications as directed--> SENT TO [facility] IN [facility] 1 tablet every 6 hours if needed for severe pain Ibuprofen 600 mg every 6-8 hours if needed for severe pain Methocarbamol 1500 mg every 12 hours if needed for muscle spasm *Follow up with your primary care provider in 2-3 days or call [phone] *Return to ER if you should have increasing pain, weakness or any new, worsening or concerning symptoms CONTROLLED SUBSTANCE DISCHARGE (Narcotoic/benzodiazepine/Flexeril/Phenergan) 1. You have been prescribed narcotic medications, it does have acetaminophen/Tylenol/paracetamol in it, DO NOT TAKE MORE THAN 4,00mg in 24 hours of Tylenol. TRAMADOL DOES NOT CONTAIN TYLENOL 2. Please understand that we cannot provide further refills of narcotics, benzodiazepines or controlled substances through the ED and her pain management will need to be through your provider. 3. While on these medications you cannot drive or operate heavy machinery. 4. You cannot sign legal documents or perform any duties such as this. 5. As long as you're taking opiate pain medications he should also be taking a stool softener such as Colace, Dulcolax, MiraLAX or prune juice, to help avoid constipation. Prescriptions: New hydrocodone-acetaminophen 5-325 mg tablet 1 tab PO Q6H PRN (Reason: pain) Qty: 10 0RF methocarbamol 750 mg tablet 1,500 mg PO Q12H PRN (Reason: muscle spasm) Qty: 20 0RF No Action albuterol sulfate 90 mcg/actuation HFA aerosol inhaler 2 puff Inhalation Q4H PRN (Reason: bronchospasm) Qty: 8.5 3RF primidone 50 mg tablet 12.5 mg PO BEDTIME 0RF Symbicort 160-4.5 mcg/actuation HFA aerosol inhaler 2 puff Inhalation BID 0RF ibuprofen 600 mg tablet 600 mg PO Q4-6H PRN (Reason: pain) 0RF Label Comments: TAKE 1 TABLET BY MOUTH EVERY 4 TO 6 HOURS DIRECTED pantoprazole 20 mg tablet,delayed release (DR/EC) 20 mg PO QAM PRN0RF Label Comments: TAKE 1 TABLET BY MOUTH ONCE DAILY IN THE MORNING mupirocin 2 % ointment 1 applictn TOP BID Qty: 15 0RF Referrals: Gagan Long MD [Primary Care Provider] -
[2021-04-07] MEDS: HYDROCODONE/ACET 5/325 TABLET 2 TAB PO (22:06)
[2021-04-07] MEDS: diazePAM 5 MG TABLET PO (22:07)
[2021-04-07 22:21] VITALS: BP 130/70; PULSE 84; RESP 18; O2SAT 98
== END 2021-04-07 22:21 | disposition home or self-care (01) ==
PROVIDERS: Emergency Provider Emergency Medicine; PCP Family Medicine
DX: M62.838 Other muscle spasm (principal); F17.210 Nicotine dependence, cigarettes, uncomplicated
CPT/HCPCS: 99283

== ENCOUNTER 2022-01-10 17:02 | Emergency (ER) | payer MEDICARE, MEDICAID, SELFPAY ==
[2022-01-10] VITALS (8 sets, daily range): BP systolic 125–184; BP diastolic 74–84; PULSE 87–100; RESP 18–33; TEMP 36.9; O2SAT 94–98
--- NOTE | 2022-01-10 17:43 | DI.RAD.S_ITS ---
PROCEDURE: XR CHEST 1V INDICATIONS: wheeze, sob TECHNIQUE: One view of the chest was acquired. COMPARISON: None. FINDINGS: Surgical changes and devices: Surgical fusion hardware in visualized lower cervical spine is seen Lungs and pleura: Lungs are clear. No pleural effusions or pneumothorax. Mediastinum: Mediastinal contours appear normal. Heart size is normal. Bones and chest wall: No suspicious bony lesions. Overlying soft tissues appear unremarkable. IMPRESSION: No acute cardiopulmonary pathology. Dictated by: Laureano Sheridan M.D. on 01/10/2022 at 18:25 Approved by: Laureano Sheridan M.D. on 01/10/2022 at 18:25
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
[2022-01-10] MEDS: predniSONE 20 MG TABLET 60 MG PO (17:49)
[2022-01-10] MEDS: ALBUTEROL/IPRATROPIUM 3 ML AMPUL INH ×2 (18:00→19:18)
[2022-01-10 18:08] LABS: COVID19 -Nasal RAPID Negative (Negative)
[2022-01-10] MEDS: ALBUTEROL 2.5 MG/3 ML NEB (ADULT) 5 MG INH (18:10)
[2022-01-10] MEDS: ALBUTEROL HFA PREPACK 1 BOX MISC (20:01)
== END 2022-01-10 20:10 | disposition home or self-care (01) ==
PROVIDERS: Emergency Medicine; Emergency Provider Emergency Medicine; PCP Family Medicine
DX: J45.901 Unspecified asthma with (acute) exacerbation (principal); Z20.822 Contact with and (suspected) exposure to COVID-19
CPT/HCPCS: 71045; 87635; 93005; 94640; 99284; C9803; J7613

== ENCOUNTER 2022-03-13 21:41 | Emergency (ER) | payer MEDICARE, MEDICAID, SELFPAY ==
[2022-03-13 21:41] VITALS: BP 162/77; PULSE 105; RESP 16; TEMP 36.4; O2SAT 99; BMI 37.5
--- NOTE | 2022-03-13 21:57 | ED_ITS ---
HPI - General Adult General Chief complaint: Abdominal Pain Stated complaint: abd pain x2 hours Time Seen by Provider: 03/13/22 21:57 Source: patient and family Mode of arrival: Ambulatory History of Present Illness HPI narrative: 51-year-old woman presents with 2 hours of severe abdominal pain with a history of intermittent abdominal pain with extensive workup that to date has been negative and included upper and lower endoscopies, gallbladder evaluation, she is been told that she does not have ulcerative colitis or Crohn's disease p ossibility of irritable bowel still remains. She states that this current episode of pain started approximately 2 hours prior to arrival and comes in waves of severe cramping pain with intermittent moderate upper abdominal pain. She states she had a normal bowel movement earlier today, reports no fevers, cough, chills, chest pain, palpitations, diaphoresis. She notes that she does take anywhere between 408 100 mg of ibuprofen daily. Has not noticed any black stools and has not had any recent emesis or concerns for upper GI bleeding. Related Data Home Medications Medication Instructions Recorded Confirmed budesonide-formoterol HFA 160 2 puff inhalation BID 07/15/18 03/02/21 mcg-4.5 mcg/actuation aerosol inhaler primidone 50 mg tablet 12.5 mg PO BEDTIME 07/15/18 03/02/21 ibuprofen 600 mg tablet 600 mg PO Q4-6H PRN pain 09/12/18 09/12/18 pantoprazole 20 mg tablet,delayed 20 mg PO QAM PRN 03/02/21 03/02/21 release Previous Rx's Medication Instructions Recorded mupirocin 2 % topical ointment 1 applictn topical BID Rash #15 12/30/19 grams hydrocodone 5 mg-acetaminophen 325 1 tab PO Q6H PRN pain #10 tabs 04/07/21 mg tablet methocarbamol 750 mg tablet 1,500 mg PO Q12H PRN muscle spasm 04/07/21 #20 tabs albuterol sulfate 90 mcg/actuation See Rx Instructions .Route 11/04/21 aerosol inhaler .COMPLEX #9 grams albuterol sulfate 2.5 mg/3 mL 2.5 mg (3 mL) inhalation Q4H PRN 01/10/22 (0.083 %) solution for nebulization shortness of breath or wheezing #75 mL albuterol sulfate 90 mcg/actuation 2 puff inhalation Q4-6H PRN 01/10/22 aerosol inhaler shortness of breath or wheezing #8.5 grams Allergies Allergy/AdvReac Type Severity Reaction Status Date / Time fluticasone Allergy Severe Migraine Verified 03/02/21 15:19 [From Advair Diskus] salmeterol Allergy Severe Migraine Verified 03/02/21 15:19 [From Advair Diskus] adhesive Allergy Rash Verified 03/02/21 15:18 iodine Allergy Verified 03/02/21 15:18 Review of Systems Review of Systems Narrative: Remainder of complete review of systems is otherwise unremarkable except for that included in the HPI. Patient History Medical History Agoraphobia Asthma Cervical cancer (~1993) Cervical vertebral fusion Chronic back pain Chronic shoulder pain COPD (chronic obstructive pulmonary disease) (~2015) Crohn's disease (~2002) Depression Dyslipidemia Essential tremor Frequent UTI Headache History of urinary incontinence Migraines PTSD (post-traumatic stress disorder) Social anxiety disorder Surgical History Anesthesia History of bilateral tubal ligation History of bladder suspension procedure History of endometrial ablation History of fusion of cervical spine Family History Mother Cancer Grandfather History of heart disease Grandmother No problems noted. Grandfather Hyperlipidemia Hypertension Stroke Grandmother Hypertension Hyperlipidemia Social History Smoking Status: Current every day smoker Smoking Status: Current every day smoker tobacco type: cigarettes alcohol intake frequency: other Substance Use Type: marijuana Exam Initial Vital Signs Initial Vital Signs: Vital Signs Temperature 97.6 F 03/13/22 21:41 Pulse Rate 105 H 03/13/22 21:41 Respiratory Rate 16 03/13/22 21:41 Blood Pressure 162/77 H 03/13/22 21:41 Pulse Oximetry 99 03/13/22 21:41 Oxygen Delivery Method 03/13/22 21:41 General: Healthy appearing, in significant distress with waves of severe upper abdominal pain. Able to give a complete and coherent history. Well-nourished well-developed HEENT: Moist mucous membranes, normal sclera with reactive pupils, Neck: No JVD, supple Respiratory: Lungs are clear to auscultation, no wheezing no rales no rhonchi. Full and symmetrical air movement Cardiac: Regular rate and rhythm no murmurs no bruits Abdomen: Soft, tenderness in the epigastrium without rebound or guarding, hypoactive bowel tones no flank pain Skin: Warm and dry, no rashes Neurologic: Grossly neurologically intact with no obvious asymmetries or abnormalities Extremities: No trauma, well perfused Psych: Cooperative, appropriate insight and affect Course Orders Ordered: ED Orders 03/13/22 21:50 Complete Blood Count AUTO DIFF Stat Comprehensive Metabolic Panel Stat Lipase Stat 03/13/22 22:20 CT abdomen pelvis w con Stat 03/13/22 22:45 Urine Microscopic Stat 03/13/22 22:55 Urine Culture Stat Ondansetron HCl (Ondansetron 4 Mg Odt) 4 mg PO NOW PRN PRN Reason: Nausea And Vomiting Ondansetron HCl (Ondansetron 4 Mg/2 Ml Inj) 4 mg IV NOW PRN PRN Reason: Nausea And Vomiting Last Admin: 03/13/22 23:34 Dose: 4 mg Discontinued Medications Sodium Chloride (Normal Saline 0.9%) 1,000 mls @ 1,000 mls/hr IV BOLUS ONE Stop: 03/14/22 00:12 Last Infusion: 03/14/22 00:39 Dose: Infused Ketorolac Tromethamine (Ketorolac 30 Mg/Ml Vial) 15 mg IV NOW ONE Stop: 03/13/22 23:14 Last Admin: 03/13/22 23:34 Dose: 15 mg Pantoprazole Sodium (Pantoprazole 40 Mg Vial) 20 mg IV NOW ONE Stop: 03/13/22 23:14 Last Admin: 03/13/22 23:33 Dose: 20 mg Vital Signs Vital signs: Vital Signs - 8 hr 03/13/22 21:41 03/13/22 22:01 03/13/22 22:01 Temperature 97.6 F Pulse Rate 105 H 93 H Respiratory Rate 16 Blood Pressure 162/77 H 144/66 H Pulse Oximetry 99 99 Oxygen Delivery Method Room Air Medical Decision Making Lab Data Result diagrams: 03/13/22 21:50 03/13/22 21:50 Labs: Lab Results 03/13/22 03/13/22 03/13/22 Range/Units 21:50 21:50 22:45 WBC 8.6 (4.5-11.0) X10^3/uL RBC 4.74 (4.0-5.2) X10^6/uL Hgb 13.7 (12.0-16.0) g/dL Hct 41.8 (36-46) % MCV 88.2 (80-100) fL MCH 28.9 (26-34) PG MCHC 32.7 (30-36) % RDW 14.3 (11.6-14.8) % Plt Count 181 (150-400) X10^3/uL Neut % (Auto) 61.9 (50-75) % Lymph % (Auto) 28.2 (25-40) % Gregg % (Auto) 5.8 (3-14) % Eos % (Auto) 3.0 (2-4) % Baso % (Auto) 1.1 (0-2) % Neut # (Auto) 5300 (5735-7714) /uL Lymph # (Auto) 2400 (8391-5946) /uL Gregg # (Auto) 500 (0-900) /uL Eos # (Auto) 300 (0-450) /uL Baso # (Auto) 100 (0-100) /uL Sodium 140 (137-145) mmol/L Potassium 3.9 (3.4-5.1) mmol/L Chloride 108 H (98-107) mmol/L Carbon Dioxide 25 (22-32) mmol/L BUN 15 (7-17) mg/dL Creatinine 0.97 (0.52-1.04) mg/dL Estimated GFR > 60 (>60) mL/min BUN/Creatinine Ratio 15.5 (6-22) Glucose 93 (70-100) mg/dL Calcium 8.9 (8.4-10.2) mg/dL Total Bilirubin 0.4 (0.2-1.3) mg/dL AST 17 (14-36) IU/L ALT 19 (<35) IU/L Alkaline Phosphatase 76 (38-126) U/L Total Protein 6.9 (6.3-8.2) g/dL Albumin 4.1 (3.5-5.0) g/dL Globulin 2.8 (1.7-4.1) g/dL Albumin/Globulin Ratio 1.5 (1.0-2.8) Lipase 79 (23-300) U/L Urine RBC None seen (0-5/HPF) Urine WBC None seen (0-5/HPF) Ur Squamous Epith Cells 1-5 /hpf (0-5/HPF) Urine Bacteria Few (2-10) H (None) Point of Care Testing Test Results Negative Urine Dip Bedside Urine Glucose Negative Bedside Urine Bilirubin - Negative Bedside Urine Ketone - Negative Urine Specific [place] 1.025 Bedside Urine Occult Blood - Negative Bedside Urine pH 6.0 Bedside Urine Protein - Negative Bedside Urine Urobilinogen +/- 1mg Bedside Urine Nitrite - Negative Bedside Urine Leukocytes - Negative Esterase Point of care testing: Point of Care Testing Test Results Negative Urine Dip Bedside Urine Glucose Negative Bedside Urine Bilirubin - Negative Bedside Urine Ketone - Negative Urine Specific [place] 1.025 Bedside Urine Occult Blood - Negative Bedside Urine pH 6.0 Bedside Urine Protein - Negative Bedside Urine Urobilinogen +/- 1mg Bedside Urine Nitrite - Negative Bedside Urine Leukocytes - Negative Esterase Imaging Data CT scan - abdomen/pelvis: Radiologist's Impression: FINDINGS:? Image quality:? Excellent.? ? Lung bases:? Unremarkable.? ? Heart:? No significant findings. ? ? ABDOMEN: Liver:? Liver is enlarged measuring 22.6 cm with steatosis. Gallbladder:? Unremarkable.? ? Biliary ducts:? Unremarkable.? ? Pancreas:? Unremarkable.? ? Spleen:? Unremarkable.? ? Adrenal Glands:? Left adrenal nodularity is present, unchanged. Kidneys and Ureters:? Punctate nonobstructing inferior right renal pole calculus. ? Stomach and Bowel:? Stomach, small bowel loops, and colon are nonobstructive.? Scattered moderate colonic stool. Peritoneum:? No abnormal intraperitoneal fluid.? No free air.? ? Ventral Wall: ? Trace fat containing ventral hernia. Abdominal Nodes:? No retroperitoneal or mesenteric adenopathy by size criteria.? Vessels:? Aorta and inferior vena cava are normal in size.? ? PELVIS: Pelvic Organs:? Uterus is markedly lobulated as previously noted suggestive of fibroids. Bladder:? Unremarkable.? ? Pelvic Nodes: No enlarged lymph nodes.? Miscellaneous: No inguinal hernias are seen. ? ? ? Bones:? Unremarkable.? IMPRESSION:? ? Scattered moderate colonic stool suggestive of constipation.? No obstruction. ? Nonobstructing right renal calculus. ? ? Dictated by: Christina Barber M.D. on 03/13/2022 at 22:56 ? ? MDM Narrative Medical decision making narrative: 51-year-old woman with 2 hours of acute upper abdominal pain. Prior workup for same. Interviewed patient and her adult daughter. EMR is reviewed it looks like her last CT imaging was in November of 2019. Upper and lower endoscopies were not done at this hospital and I do not have access to those results at this time. Differential includes gastritis, posterior perforating ulcer, duodenal ulcer, pancreatitis, gallbladder disease, internal hernia, pancreatic mass. Cardiac and pulmonary etiologies are considered less likely at this time 1119pm patient is re-examined. Still having moderate amounts of pain. D iscussed CT finding suggesting possible constipation and she is noted that she is actually had 2 fairly normal bowel movements today. In the past when she is tried laxatives symptoms have worsened and when she then develops diarrhea symptoms are again exacerbated. 1255am after a L of fluid, IV Protonix, Toradol pain is essentially resolved. Again reviewed findings, questions are answered she is safe for discharge home Discharge Plan Departure Patient Disposition: Home Clinical Impression: Abdominal pain Qualifiers: Abdominal location: upper abdomen, unspecified Qualified Code(s): R10.10 - Upper abdominal pain, unspecified Instructions: DI for Abdominal Pain-Adult Activity Restrictions/Additional Instructions: Thank you for coming in today Your lab work and CT scan were actually quite normal. There is no evidence of life-threatening abnormalities, masses, internal hemorrhoids, pancreatitis, liver or gallbladder problems. No evidence of bleeding from your stomach. The CT scan does suggest quite a bit of stool in your colon but no abnormalities to the small bowel wall or the colon itself. If you find that you are getting worse or develop any new symptoms, please feel free to return to the emergency department for further evaluation. Prescriptions: No Action albuterol sulfate 90 mcg/actuation HFA aerosol inhaler See Rx Instructions .ROUTE .COMPLEX Qty: 9 3RF Dose Instruction: INHALE 2 PUFFS BY MOUTH EVERY 4 HOURS NEEDED FOR BRONCHOSPASM Rx Instructions: INHALE 2 PUFFS BY MOUTH EVERY 4 HOURS NEEDED FOR BRONCHOSPASM primidone 50 mg tablet 12.5 mg PO BEDTIME Symbicort 160-4.5 mcg/actuation HFA aerosol inhaler 2 puff Inhalation BID ibuprofen 600 mg tablet 600 mg PO Q4-6H PRN (Reason: pain) Label Comments: TAKE 1 TABLET BY MOUTH EVERY 4 TO 6 HOURS DIRECTED pantoprazole 20 mg tablet,delayed release (DR/EC) 20 mg PO QAM PRN Label Comments: TAKE 1 TABLET BY MOUTH ONCE DAILY IN THE MORNING mupirocin 2 % ointment 1 applictn TOP BID Qty: 15 0RF hydrocodone-acetaminophen 5-325 mg tablet 1 tab PO Q6H PRN (Reason: pain) Qty: 10 0RF methocarbamol 750 mg tablet 1,500 mg PO Q12H PRN (Reason: muscle spasm) Qty: 20 0RF albuterol sulfate 90 mcg/actuation HFA aerosol inhaler 2 puff inhalation Q4-6H PRN (Reason: shortness of breath or wheezing) Qty: 8.5 2RF albuterol sulfate 2.5 mg /3 mL (0.083 %) solution for nebulization 2.5 mg inhalation Q4H PRN (Reason: shortness of breath or wheezing) Qty: 75 2RF Referrals: Gagan Long MD [Primary Care Provider] -
[2022-03-13 22:01] VITALS: BP 144/66; PULSE 93; O2SAT 99
[2022-03-13 22:02] LABS: Add Manual Diff / Slide Review NO; Basophils Absolute Auto 100 /uL (0-100); Basophils Percent Auto 1.1 % (0-2); Eosinophils Absolute Auto 300 /uL (0-450); Hematocrit 41.8 % (36-46); Hemoglobin 13.7 g/dL (12.0-16.0); Lymphocytes Absolute Auto 2400 /uL (1100-4500); Lymphocytes Percent Auto 28.2 % (25-40); Mean Corpuscular HGB Conc 32.7 % (30-36); Mean Corpuscular Hemoglobin 28.9 PG (26-34); Mean Corpuscular Volume 88.2 fL (80-100); Monocytes Absolute Auto 500 /uL (0-900); Monocytes Percent Auto 5.8 % (3-14); Neutrophils Absolute Auto 5300 /uL (1500-7000); Neutrophils Percent Auto 61.9 % (50-75); Platelet Count 181 X10^3/uL (150-400); Red Blood Cell Count 4.74 X10^6/uL (4.0-5.2); Red Cell Distribution Width 14.3 % (11.6-14.8); White Blood Cell Count 8.6 X10^3/uL (4.5-11.0)
[2022-03-13 22:12] LABS: Alanine Aminotransferase 19 IU/L (<35); Albumin 4.1 g/dL (3.5-5.0); Albumin Globulin Ratio 1.5 (1.0-2.8); Alkaline Phosphatase 76 U/L (38-126); Aspartate Aminotransferase 17 IU/L (14-36); BUN Creatinine Ratio 15.5 (6-22); Bilirubin Total 0.4 mg/dL (0.2-1.3); Blood Urea Nitrogen 15 mg/dL (7-17); Calcium 8.9 mg/dL (8.4-10.2); Carbon Dioxide 25 mmol/L (22-32); Chloride 108 mmol/L (98-107); Estimated Glomerular Filt Rate > 60 mL/min (>60); Globulin 2.8 g/dL (1.7-4.1); Glucose 93 mg/dL (70-100); HEMOLYSIS < 15 (0-50); Lipase 79 U/L (23-300); Potassium 3.9 mmol/L (3.4-5.1); Sodium 140 mmol/L (137-145); Total Protein 6.9 g/dL (6.3-8.2)
--- NOTE | 2022-03-13 22:20 | DI.CT.S_ITS ---
PROCEDURE: CT ABDOMEN PELVIS W CON INDICATIONS: acute onset severe upper abdominal pain, coming in waves TECHNIQUE: After the administration of IV contrast, axial sections were acquired from the lung bases to the pubic symphysis. Coronal and sagittal reformats were performed. For radiation dose reduction, the following was used: automated exposure control, adjustment of mA and/or kV according to patient size. COMPARISON: [facility], CT, CT ABDOMEN PELVIS W CON, 07/26/2018, 6:28. FINDINGS: Image quality: Excellent. Lung bases: Unremarkable. Heart: No significant findings. ABDOMEN: Liver: Liver is enlarged measuring 22.6 cm with steatosis. Gallbladder: Unremarkable. Biliary ducts: Unremarkable. Pancreas: Unremarkable. Spleen: Unremarkable. Adrenal Glands: Left adrenal nodularity is present, unchanged. Kidneys and Ureters: Punctate nonobstructing inferior right renal pole calculus. Stomach and Bowel: Stomach, small bowel loops, and colon are nonobstructive. Scattered moderate colonic stool. Peritoneum: No abnormal intraperitoneal fluid. No free air. Ventral Wall: Trace fat containing ventral hernia. Abdominal Nodes: No retroperitoneal or mesenteric adenopathy by size criteria. Vessels: Aorta and inferior vena cava are normal in size. PELVIS: Pelvic Organs: Uterus is markedly lobulated as previously noted suggestive of fibroids. Bladder: Unremarkable. Pelvic Nodes: No enlarged lymph nodes. Miscellaneous: No inguinal hernias are seen. Bones: Unremarkable. IMPRESSION: Scattered moderate colonic stool suggestive of constipation. No obstruction. Nonobstructing right renal calculus. Dictated by: Christina Barber M.D. on 03/13/2022 at 22:56 Approved by: Christina Barber M.D. on 03/13/2022 at 22:58
[2022-03-13 23:11] LABS: Bacteria Urine Few (2-10); RBC Urine None Seen (0-5/HPF); Squamous Epithelial Cell Urine 1-5 /HPF (0-5/HPF); WBC Urine None Seen (0-5/HPF)
[2022-03-13] MEDS: PANTOPRAZOLE 40 MG VIAL 20 MG IV (23:33)
[2022-03-13] MEDS: KETOROLAC 30 MG/ML VIAL 15 MG IV (23:34)
[2022-03-13] MEDS: ONDANSETRON 4 MG/2 ML INJ IV (23:34)
[2022-03-13] MEDS: SODIUM CHLORIDE 0.9% 1,000 ML 1000 ML IV (23:35)
[2022-03-14 01:52] VITALS: BP 113/59; PULSE 90; O2SAT 95
[2022-03-14 01:57] VITALS: BP 113/59; PULSE 88; RESP 16; O2SAT 95
== END 2022-03-14 01:58 | disposition home or self-care (01) ==
PROVIDERS: Emergency Provider Emergency Medicine; PCP Family Medicine
DX: R10.10 Upper abdominal pain, unspecified (principal)
CPT/HCPCS: 36415; 74177; 80053; 81003; 81015; 81025; 83690; 85025; 87086; 96361; 96374; 96375; 99284; C9113; J1885; J2405; Q9967

== ENCOUNTER → 2022-04-01 15:55 | Outpatient (CLI) | payer MEDICARE, MEDICAID, SELFPAY ==
--- NOTE | 2022-04-01 15:56 | DI.RAD.S_ITS ---
PROCEDURE: XR CHEST 2V INDICATIONS: asthma exacerbation TECHNIQUE: 2 views of the chest were acquired. COMPARISON: [facility], CR, XR CHEST 1V, 01/10/2022, 18:10. FINDINGS: Surgical changes and devices: None. Lungs and pleura: Increased bronchovascular markings in bilateral hilar region are seen with mild bronchial wall thickening. No focal infiltrate. No pleural effusions or pneumothorax. Mediastinum: Mediastinal contours are normal. Heart size is normal. Bones and chest wall: No suspicious bony abnormalities. Soft tissues appear unremarkable. IMPRESSION: Suggestion of mild reactive airway disease. No focal infiltrate, pleural effusion or pneumothorax. Dictated by: Laureano Sheridan M.D. on 04/01/2022 at 16:56 Approved by: Laureano Sheridan M.D. on 04/01/2022 at 16:57
== END ==
PROVIDERS: PCP Family Medicine; Referring Provider Family Medicine; Visit Provider Family Medicine
DX: J44.9 Chronic obstructive pulmonary disease, unspecified (principal); Z77.090 Contact with and (suspected) exposure to asbestos
CPT/HCPCS: 71046

== ENCOUNTER → 2022-04-11 10:25 | Outpatient (CLI) | payer MEDICARE, MEDICAID, SELFPAY ==
--- NOTE | 2022-04-11 10:26 | DI.CT.S_ITS ---
PROCEDURE: CT LUNG LOW DOSE SCREENING INDICATIONS: 40 pack year smoker, asbestos exposure TECHNIQUE: Noncontrast 2.0-2.5 mm thick sections acquired from the pulmonary apices to the posterior costophrenic angles. 7 mm thick axial MIP, and 5 mm coronal and sagittal reformats were then acquired. A low radiation dose technique was utilized. COMPARISON: [facility], CT, CT ABDOMEN PELVIS W CON, 03/13/2022, 22:28. FINDINGS: Image quality: Diagnostic, given the low radiation dose technique. Lungs and pleura: Mild emphysematous change. Left upper lobe pulmonary nodule measuring 0.3 cm, (3/121). No mass or suspicious pulmonary nodules. Mild bronchial wall thickening. Central airways are clear. No acute airspace opacity. No pleural effusion. No pleural plaques. No pneumothorax. Mediastinum: Heart size is normal. No pericardial effusion. No mediastinal adenopathy by size criteria. Thoracic aorta and central pulmonary arteries are normal in size. Esophagus is normal in caliber. No hiatal hernia. Bones and chest wall: No suspicious bony lesions. No vertebral body compression fractures. No axillary or supraclavicular adenopathy by size criteria. Thyroid gland is unremarkable. Abdomen: Visualized upper abdomen solid organs and bowel loops appear normal in the absence of contrast. IMPRESSION: No significant pulmonary nodules. LUNG-RADS 2; recommend follow-up lung cancer screening chest CT in 12 months. Dictated by: Jorge Prieto M.D. on 04/11/2022 at 12:25 Approved by: Jorge Prieto M.D. on 04/11/2022 at 12:31
== END ==
PROVIDERS: PCP Family Medicine; Referring Provider Family Medicine; Visit Provider Family Medicine
DX: Z13.83 Encounter for screening for respiratory disorder NEC; J44.9 Chronic obstructive pulmonary disease, unspecified; F17.200 Nicotine dependence, unspecified, uncomplicated; Z77.090 Contact with and (suspected) exposure to asbestos
CPT/HCPCS: 71250

== ENCOUNTER → 2022-04-15 12:00 | Outpatient (CLI) | payer MEDICARE, MEDICAID, SELFPAY ==
[2022-04-15 14:05] LABS: Alanine Aminotransferase 19 IU/L (<35); Albumin 4.2 g/dL (3.5-5.0); Albumin Globulin Ratio 1.5 (1.0-2.8); Alkaline Phosphatase 84 U/L (38-126); Aspartate Aminotransferase 17 IU/L (14-36); BUN Creatinine Ratio 16.9 (6-22); Bilirubin Total 0.4 mg/dL (0.2-1.3); Blood Urea Nitrogen 13 mg/dL (7-17); Calcium 9.4 mg/dL (8.4-10.2); Carbon Dioxide 25 mmol/L (22-32); Chloride 105 mmol/L (98-107); Cholesterol 249 mg/dL (140-199); Estimated Glomerular Filt Rate > 60 mL/min (>60); Globulin 2.8 g/dL (1.7-4.1); Glucose 89 mg/dL (70-100); HDL Cholesterol 61 mg/dL (40-60); HEMOLYSIS < 15 (0-50); LDL Cholesterol Calculated 158 mg/dL (<100); Potassium 4.5 mmol/L (3.4-5.1); Sodium 138 mmol/L (137-145); Triglycerides 149 mg/dL (35-150)
[2022-04-15 14:09] LABS: NT-proBNP (BNP-Adult 18+) 54 pg/mL (<125)
== END ==
PROVIDERS: PCP Family Medicine; Referring Provider Family Medicine; Visit Provider Family Medicine
DX: R06.01 Orthopnea (principal); E78.5 Hyperlipidemia, unspecified; J44.9 Chronic obstructive pulmonary disease, unspecified; R60.0 Localized edema
CPT/HCPCS: 36415; 80053; 80061; 83880

== ENCOUNTER → 2022-10-17 12:02 | Outpatient (CLI) | payer MEDICARE, MEDICAID, SELFPAY ==
--- NOTE | 2022-10-17 12:03 | DI.ECHO.S_ITS ---
[facility]---------+ [facility] +---------+ : : [address] : : : : [id number] : : : : Phone: [phone]+ Echocardiogram Report + + :Name: MATTHIEU COTTON Study Date: 10/17/2022 Height: 66 in : :[facility] ReadingLocation: Weight: 240 lb : : Gender: Female BSA: 2.2 m2 : :: 1970 Age: 52 yrs BP: 134/88 mmHg: :Reason For Study: Lower Extremity Edema and Orthonea : :Ordering Physician: GUERLINE, : :MARNIE Performed By: Bianca Bauer : :Referring: MARNIE CNUHA : + + Interpretation Summary The left ventricle is normal in size and wall thickness. Left ventricular systolic function is normal. The ejection fraction is estimated to be 60-65%. The right ventricle is normal size. The right ventricular systolic function is normal. No significant valvular pathology seen. The IVC is of normal diameter and collapses greater than 50% with a sniff. This suggests a low right atrial pressure of 3 mm Hg. Procedure: A two-dimensional transthoracic echocardiogram with color flow and Doppler was performed. The study quality was technically adequate. There is no prior echocardiogram noted for this patient. The patient was in normal sinus rhythm during the exam. Left Ventricle: The left ventricle is normal in size and wall thickness. There is no thrombus. The ejection fraction is estimated to be 60-65%. Left ventricular systolic function is normal. There are no focal wall motion abnormalities. Diastolic parameters suggest a relaxation abnormality of the left ventricle, consistent with probable normal filling pressures. Right Ventricle: The right ventricle is normal size. The right ventricular systolic function is normal. Atria: The left atrial size is normal. Right atrial size is normal. There is no Doppler evidence for an interatrial shunt. Mitral Valve: The mitral valve is normal. There is no mitral valve stenosis. There is no mitral regurgitation noted. Aortic Valve: The aortic valve is not well visualized. The aortic valve is trileaflet. The aortic valve opens well. There is no aortic valve stenosis. No aortic regurgitation is present. Tricuspid Valve: The tricuspid valve is not well visualized. There is no tricuspid stenosis. There is trace tricuspid regurgitation. Pulmonary artery pressures cannot be estimated because of the lack of a measurable TR jet velocity. Pulmonic Valve: The pulmonic valve is not well visualized. There is no pulmonic valvular stenosis. There is no pulmonic valvular regurgitation. Great Vessels: The aortic root is normal size. The ascending aorta is normal in size. The pulmonary artery is normal size. The IVC is of normal diameter and collapses greater than 50% with a sniff. This suggests a low right atrial pressure of 3 mm Hg. Pericardium/ Pleura There is no pericardial effusion. There is no pleural effusion. MMode/2D Measurements & Calculations LVIDd: 4.7 cm LVOT diam: 1.9 cm LVIDs: 3.8 cm Ao root diam: 2.7 cm FS: 19.1 % asc Aorta Diam: 2.8 cm IVSd: 0.90 cm LVPWd: 0.90 cm LV lawrence. diameter/BSA (cm/m^2): 2.2 LV sys. diameter/BSA (cm/m^2): 1.8 LA A2 area: 19.7 cm2 RA long axis: 4.3 cm LA A4 area: 14.0 cm2 RA area: 11.5 cm2 LA length (vol): 5.9 cm RA vol: 26.0 ml LA vol: 39.9 ml RA : 12.0 ml/m2 LA vol index: 18.5 ml/m2 RVD1 (basal): 3.1 cm LVLs ap4: 6.2 cm LVLd ap2: 7.1 cm TAPSE_phl: 2.4 cm LVLs ap2: 6.2 cm Doppler Measurements & Calculations Ao V2 max: 158.0 cm/sec LVOT Max Justus: 110.0 cm/sec Ao V2 mean: 99.9 cm/sec LV V1 max P.8 mmHg Ao max P.0 mmHg LV V1 VTI: 23.6 cm Ao mean P.0 mmHg DANNY(I,D): 2.1 cm2 Ao V2 VTI: 32.6 cm DANNY(V,D): 2.0 cm2 sev ratio: 0.72 DANNY indexed to BSA (cm^2/m^2): 0.95 MV E max justus: 97.7 cm/sec PA V2 max: 95.4 cm/sec MV A max justus: 82.7 cm/sec PA V2 mean: 66.7 cm/sec MV E/A: 1.2 PA mean P.0 mmHg Med Peak E' Justus: 8.5 cm/sec PA pr(Accel): 34.9 mmHg E/E' med: 11.5 Lat Peak E' Justus: 12.7 cm/sec E/E' lat: 7.7 E/e' average: 9.6 MV dec time: 0.19 sec SV(LVOT): 66.9 ml AV VR_phl: 0.70 DANNY(VTI)/BSA_phl: 0.95 MV P1/2t-pr_phl: 56.0 msec Reading Physician:02:11 PM
== END ==
PROVIDERS: PCP Family Medicine; Referring Provider Family Medicine; Visit Provider Family Medicine
DX: R06.01 Orthopnea (principal); R60.0 Localized edema
CPT/HCPCS: 93306

== ENCOUNTER → 2022-11-03 14:52 | Outpatient (CLI) | payer MEDICARE, MEDICAID, SELFPAY ==
--- NOTE | 2022-11-03 14:53 | DI.RAD.S_ITS ---
PROCEDURE: XR FOOT RT MIN 3V INDICATIONS: right heel and achilles pain TECHNIQUE: 3 views of the foot were acquired. COMPARISON: None. FINDINGS: Bones: No fractures or dislocations. No suspicious bony lesions. Small dorsal calcaneal bone spur. Mild midfoot osteoarthritis. Incidental note made of os naviculare. Soft tissues: No tibiotalar joint effusion. Achilles tendon appears normal. IMPRESSION: Small dorsal calcaneal bone spur. Dictated by: Cristina Traore MD, PhD on 11/03/2022 at 16:39 Approved by: Cristina Traore MD, PhD on 11/03/2022 at 16:40
== END ==
PROVIDERS: PCP Family Medicine; Referring Provider Family Medicine; Visit Provider Family Medicine
DX: M77.31 Calcaneal spur, right foot (principal); M79.671 Pain in right foot; M76.60 Achilles tendinitis, unspecified leg
CPT/HCPCS: 73630

== ENCOUNTER → 2023-01-23 11:35 | Outpatient (CLI) | payer MEDICARE, MEDICAID, SELFPAY ==
--- NOTE | 2023-01-23 11:35 | DI.MG.S_ITS ---
BILATERAL DIGITAL SCREENING MAMMOGRAM 3D/2D WITH CAD: 01/23/2023 CLINICAL: Baseline exam. Routine screening. No prior exams were available for comparison. There are scattered areas of fibroglandular density in both breasts (category b / 25%-50% glandular tissue). Current study was also evaluated with a Computer Aided Detection (CAD) system. There is a focal asymmetry in the left breast upper outer quadrant at posterior depth. No other significant masses, calcifications, or other findings are seen in either breast. IMPRESSION: INCOMPLETE: NEEDS ADDITIONAL IMAGING EVALUATION The focal asymmetry in the left breast is indeterminate. A diagnostic mammogram and ultrasound is recommended. Based on the Tyrer Cuzick model (a risk assessment model) the patient's lifetime risk is 6.9% and her 10 year risk is 1.6%. According to the ACR, ACS, and NCCN guidelines, an annual breast MRI exam along with mammogram is recommended if the patient's lifetime risk is 20% or greater. This exam was interpreted at Station ID: [id number]. NOTE: For mammograms, a report in lay terms will be sent to the patient. Approximately 15% of breast malignancies will not be visualized mammographically. In the management of a palpable breast mass, a negative mammogram must not discourage biopsy of a clinically suspicious lesion. Electronically Signed By: Eliza Burkett M.D., PH.D eb/:01/23/2023 16:27:47 letter sent: Additional Imaging Needed ACR BI-RADS Category 0: Incomplete 3340F
== END ==
PROVIDERS: PCP Family Medicine; Referring Provider Family Medicine; Visit Provider Family Medicine
DX: Z12.31 Encounter for screening mammogram for malignant neoplasm of breast (principal)
CPT/HCPCS: 77063; 77067

== ENCOUNTER → 2023-02-13 09:52 | Outpatient (CLI) | payer MEDICARE, MEDICAID, SELFPAY ==
--- NOTE | 2023-02-13 | DI.MG.S_ITS ---
UNILATERAL LEFT DIGITAL DIAGNOSTIC MAMMOGRAM 3D/2D WITH ADDITIONAL VIEWS: 02/13/2023 CLINICAL: Additional evaluation requested from prior study. Comparison is made to exam dated: 01/23/2023 mammogram - [facility]. There are scattered areas of fibroglandular density in the left breast (category b / 25%-50% glandular tissue). There is a 1.1 cm oval equal density focal asymmetry in the left breast at 2 o'clock posterior depth. This is seen in additional views. No other significant masses or calcifications are seen in the breast. IMPRESSION: INCOMPLETE: NEEDS ADDITIONAL IMAGING EVALUATION The 1.1 cm oval equal density focal asymmetry in the left breast resembles a lymph node and is indeterminate. An ultrasound is recommended for further evaluation and is scheduled to immediately follow this examination. Based on the Tyrer Cuzick model (a risk assessment model) the patient's lifetime risk is 5.1% and her 10 year risk is 1.2%. According to the ACR, ACS, and NCCN guidelines, an annual breast MRI exam along with mammogram is recommended if the patient's lifetime risk is 20% or greater. This exam was interpreted at Station ID: [id number]. NOTE: For mammograms, a report in lay terms will be sent to the patient. Approximately 15% of breast malignancies will not be visualized mammographically. In the management of a palpable breast mass, a negative mammogram must not discourage biopsy of a clinically suspicious lesion. Electronically Signed By: Zafar Kurtz M.D. aty/:02/13/2023 10:21:46 ACR BI-RADS Category 0: Incomplete 3340F
--- NOTE | 2023-02-13 09:52 | DI.US.S_ITS ---
LIMITED ULTRASOUND OF LEFT BREAST: 02/13/2023 Comparison is made to exams dated: 02/13/2023 mammogram and 01/23/2023 mammogram - [facility]. Color flow and real-time ultrasound of the left breast 2-3 o'clock region were performed. Clark scale images of the real-time examination were reviewed. There is a 1.1 cm x 0.4 cm x 0.7 cm normal lymph node in the left breast at 2 o'clock posterior depth 7 cm from the nipple. This normal lymph node displays fatty hilum. This correlates with mammography findings. There also is a 1.1 cm x 0.6 cm x 1.1 cm normal lymph node in the left breast at 2 o'clock posterior depth 10 cm from the nipple. This normal lymph node displays fatty hilum. This correlates as an incidental finding. IMPRESSION: BENIGN There is no sonographic evidence of malignancy. The 1.1 cm x 0.4 cm x 0.7 cm normal lymph node in the left breast at 2 o'clock posterior depth is benign. The 1.1 cm x 0.6 cm x 1.1 cm normal lymph node in the left breast at 2 o'clock posterior depth is benign. A 1 year screening mammogram is recommended. Findings and recommendations were conveyed to the patient during today's evaluation. This exam was interpreted at Station ID: [id number]. Electronically Signed By: Zafar Kurtz M.D. aty/:02/13/2023 11:23:37 letter sent: Normal Exam Ultrasound BI-RADS: 2 Benign
== END ==
PROVIDERS: PCP Family Medicine; Referring Provider Family Medicine; Visit Provider Family Medicine
DX: R92.8 Other abnormal and inconclusive findings on diagnostic imaging of breast (principal); N63.21 Unspecified lump in the left breast, upper outer quadrant; N64.89 Other specified disorders of breast
CPT/HCPCS: 76642; 77065; G0279

== ENCOUNTER → 2024-01-02 10:11 | Outpatient (CLI) | payer MEDICARE, MEDICAID, SELFPAY ==
[2024-01-02 11:05] LABS: Add Manual Diff / Slide Review NO; Basophils Absolute Auto 100 /uL (0-100); Eosinophils Absolute Auto 200 /uL (0-450); Eosinophils Percent Auto 2.8 % (2-4); Hematocrit 44.4 % (36-46); Hemoglobin 14.7 g/dL (12.0-16.0); Lymphocytes Absolute Auto 2400 /uL (1100-4500); Lymphocytes Percent Auto 32.5 % (25-40); Mean Corpuscular HGB Conc 33.2 % (30-36); Mean Corpuscular Hemoglobin 29.1 PG (26-34); Mean Corpuscular Volume 87.7 fL (80-100); Monocytes Absolute Auto 400 /uL (0-900); Monocytes Percent Auto 5.2 % (3-14); Neutrophils Absolute Auto 4400 /uL (1500-7000); Neutrophils Percent Auto 58.5 % (50-75); Platelet Count 203 X10^3/uL (150-400); Red Blood Cell Count 5.06 X10^6/uL (4.0-5.2); Red Cell Distribution Width 14.3 % (11.6-14.8); White Blood Cell Count 7.5 X10^3/uL (4.5-11.0)
[2024-01-02 11:53] LABS: TSH w/ Reflex to FT4 2.15 uIU/mL (0.47-4.68)
[2024-01-02 12:03] LABS: Alanine Aminotransferase 18 IU/L (<35); Albumin Globulin Ratio 1.5 (1.0-2.8); Alkaline Phosphatase 92 U/L (38-126); Aspartate Aminotransferase 17 IU/L (14-36); BUN Creatinine Ratio 13.2 (6-22); Bilirubin Total 0.3 mg/dL (0.2-1.3); Blood Urea Nitrogen 12 mg/dL (7-17); Calcium 9.6 mg/dL (8.4-10.2); Carbon Dioxide 29 mmol/L (22-32); Chloride 103 mmol/L (98-107); Cholesterol 243 mg/dL (140-199); Estimated Glomerular Filt Rate > 60 mL/min (>60); Globulin 2.7 g/dL (1.7-4.1); Glucose 99 mg/dL (70-100); HDL Cholesterol 55 mg/dL (40-60); HEMOLYSIS < 15 (0-50); LDL Cholesterol Calculated 152 mg/dL (<100); Potassium 4.5 mmol/L (3.4-5.1); Sodium 138 mmol/L (137-145); Total Protein 6.7 g/dL (6.3-8.2); Triglycerides 180 mg/dL (35-150)
[2024-01-02 12:21] LABS: Hemoglobin A1C% w Est Avg Glu 5.6 % (4.0-6.0)
== END ==
PROVIDERS: PCP Family Medicine; Referring Provider Family Medicine; Visit Provider Family Medicine
DX: E78.5 Hyperlipidemia, unspecified (principal); K50.90 Crohn's disease, unspecified, without complications; J44.9 Chronic obstructive pulmonary disease, unspecified; Z13.1 Encounter for screening for diabetes mellitus
CPT/HCPCS: 36415; 80053; 80061; 83036; 84443; 85025

== ENCOUNTER → 2024-09-05 11:58 | Outpatient (CLI) | payer MEDICARE, MEDICAID, SELFPAY ==
[2024-09-05 13:02] LABS: Cholesterol 227 mg/dL (140-199); HDL Cholesterol 53 mg/dL (40-60); LDL Cholesterol Calculated 144 mg/dL (<100); Triglycerides 148 mg/dL (35-150)
[2024-09-06 04:36] LABS: Apolipoprotein B 119 mg/dL (<90)
== END ==
PROVIDERS: PCP Family Medicine; Referring Provider Family Medicine; Visit Provider Family Medicine
DX: E78.5 Hyperlipidemia, unspecified (principal); E75.6 Lipid storage disorder, unspecified
CPT/HCPCS: 36415; 80061; 82172

== ENCOUNTER → 2024-09-30 12:18 | Outpatient (CLI) | payer MEDICARE, MEDICAID, SELFPAY ==
--- NOTE | 2024-09-30 12:18 | DI.US.S_ITS ---
PROCEDURE: US HERNIA INDICATIONS: concern for ventral hernia TECHNIQUE: Real-time focused scanning was performed of the abdomen, with image documentation. COMPARISON: None. FINDINGS: In the area of clinical concern approximately 6 centimeter superior to the umbilicus, there is reducible fat containing hernia. Fascial defect measures approximately 1.2 centimeter sagittally and 1.9 centimeters transversely. IMPRESSION: Reducible fat containing supraumbilical hernia. Approved by: Eliza Burkett M.D.,Ph.D. on 09/30/2024 at 20:39
== END ==
LOC: US 12:18
PROVIDERS: PCP Family Medicine; Referring Provider Family Medicine; Visit Provider Family Medicine
DX: K42.9 Umbilical hernia without obstruction or gangrene (principal); R19.00 Intra-abdominal and pelvic swelling, mass and lump, unspecified site
CPT/HCPCS: 76705

== ENCOUNTER → 2024-10-10 09:35 | Outpatient (CLI) | payer MEDICARE, MEDICAID, SELFPAY | LOC: CAR 09:36 | PROVIDERS: PCP Family Medicine; Referring Provider Family Medicine; Visit Provider Family Medicine | DX: R00.2 Palpitations (principal) | CPT/HCPCS: 93246 ==

== ENCOUNTER 2024-10-19 13:10 | Emergency (ER) | payer MEDICARE, MEDICAID, SELFPAY ==
[2024-10-19 13:18] VITALS: BP 166/109; PULSE 90; RESP 17; TEMP 36.6; O2SAT 99; BMI 37.1
--- NOTE | 2024-10-19 15:37 | ED.ABDPAIN ---
HPI - Abdominal Pain General Chief Complaint: Abdominal Pain Stated Complaint: wants hernia looked at Time Seen by Provider: 10/19/24 14:43 Source: patient Mode of arrival: Ambulatory History of Present Illness HPI narrative: 54-year-old female with a proximally 2 month history of a ventral hernia woke up this morning with severe pain around the hernia. Currently the pain has dissipated some. The hernia is not reducible and she does have a follow ups general surgery initial appointment coming up. Patient denies any other or GI symptoms, all other systems negative. Related Data Home Medications ?Medication ?Instructions ?Recorded ?Confirmed ibuprofen 600 mg tablet 600 mg PO Q4-6H PRN pain 09/12/18 09/30/24 Previous Rx's ?Medication ?Instructions ?Recorded albuterol sulfate 2.5 mg/3 mL 2.5 mg (3 mL) inhalation Q4H PRN 04/15/22 (0.083 %) solution for nebulization shortness of breath or wheezing #75 mL clobetasol 0.05 % topical cream 1 applic topical BID 2 weeks #45 01/02/24 grams tiotropium bromide 2.5 2 puff inhalation DAILY #4 grams 06/06/24 mcg/actuation mist for inhalation (Spiriva Respimat) primidone 50 mg tablet 50 mg PO BEDTIME #90 tabs 09/05/24 albuterol sulfate 90 mcg/actuation See Rx Instructions .Route 09/18/24 aerosol inhaler .COMPLEX #9 grams dextroamphetamine-amphetamine 10 10 mg PO BID #60 tabs 09/30/24 mg tablet (Adderall) Symbicort 160 mcg-4.5 2 puff PO BID #11 grams 10/18/24 mcg/actuation HFA aerosol inhaler (budesonide-formoterol) Allergies Allergy/AdvReac Type Severity Reaction Status Date / Time fluticasone (From Advair Allergy Severe Migraine Verified 10/19/24 13:18 Diskus) salmeterol (From Advair Allergy Severe Migraine Verified 10/19/24 13:18 Diskus) adhesive Allergy Rash Verified 10/19/24 13:18 iodine Allergy Verified 10/19/24 13:18 Review of Systems Review of Systems ROS Unobtainable: All systems reviewed & are unremarkable except as noted in HPI and below Patient History Medical History (Updated 10/19/24 @ 17:21 by Roberto Rizzo MD) Crohn's disease, unspecified, with unspecified complications Nicotine dependence Psoriasis Smoking greater than 40 pack years H/O asbestos exposure Asthma Social anxiety disorder Agoraphobia COPD (chronic obstructive pulmonary disease) (~2015) PTSD (post-traumatic stress disorder) Depression Migraines Headache Chronic shoulder pain Chronic back pain History of urinary incontinence Frequent UTI Crohn's disease (~2002) Cervical cancer (~1993) Essential tremor Dyslipidemia Asthma Cervical vertebral fusion Surgical History Anesthesia History of fusion of cervical spine History of endometrial ablation History of bilateral tubal ligation History of bladder suspension procedure Family History Mother Cancer Grandfather History of heart disease Grandmother No problems noted. Grandfather Hyperlipidemia Hypertension Stroke Grandmother Hypertension Hyperlipidemia Social History Smoking Status: Current every day smoker Smoking Status: Current every day smoker tobacco type: cigarettes alcohol intake frequency: other Exam Narrative Exam Narrative: General: Patient appears to be in no acute distress, acting appropriately Head: normocephalic, atraumatic, HEENT: Pupils equal round reactive, eyes tracking well, neck supple, no JVD Heart: regular rate and rhythm, no murmurs, rubs, or gallops heard Lungs: clear to auscultation, no adventitious sounds Abdomen: soft , mildly tender to palpation, obvious ventral hernia seen that is nonreducible. Positive bowel sounds. Neurological: no focal neurological signs, moving all extremities well, alert and oriented x3, Psych: good judgment ,good insight, mood is normal. Initial Vital Signs Initial Vital Signs: Vital Signs Temperature 98 F 10/19/24 13:18 Pulse Rate 90 10/19/24 13:18 Respiratory Rate 17 10/19/24 13:18 Blood Pressure 166/109 H 10/19/24 13:18 Pulse Oximetry 99 10/19/24 13:18 Oxygen Delivery Method Room Air 10/19/24 13:18 Course Course Course Narrative: We will work the patient for abdominal pain with imaging and labs at this time. Orders Ordered: ED Orders 10/19/24 15:48 CT abdomen pelvis w con Stat 10/19/24 16:30 CBC Auto Diff [Complete Blood Count AUTO DIFF] Stat CMP [Comprehensive Metabolic Panel] Stat Lipase Stat Reevaluation(s) Reevaluation #1: Upon re-evaluation, patient's pain has significantly improved. Vital Signs Vital signs: Vital Signs - 8 hr 10/19/24 13:18 10/19/24 17:17 Temperature 98 F Pulse Rate 90 88 Respiratory Rate 17 16 Blood Pressure 166/109 H 150/84 H Pulse Oximetry 99 99 Oxygen Delivery Method Room Air Room Air MDM - Abdominal Pain Differential Diagnosis Differential diagnosis: Likely abdominal pain, constipation, diverticulitis, small bowel obstruction and other (hernia strangulation ) Lab Data 10/19/24 16:30 10/19/24 16:30 Labs: Lab Results 10/19/24 Range/Units 16:30 WBC 8.2 (4.5-11.0) X10^3/uL RBC 5.09 (4.0-5.2) X10^6/uL Hgb 15.0 (12.0-16.0) g/dL Hct 44.5 (36-46) % MCV 87.5 (80-100) fL MCH 29.5 (26-34) PG MCHC 33.8 (30-36) % RDW 14.2 (11.6-14.8) % Plt Count 180 (150-400) X10^3/uL Neut % (Auto) 55.5 (50-75) % Lymph % (Auto) 34.7 (25-40) % Campbell % (Auto) 5.3 (3-14) % Eos % (Auto) 3.2 (2-4) % Baso % (Auto) 1.3 (0-2) % Neut # (Auto) 4600 (1042-9544) /uL Lymph # (Auto) 2900 (8390-4702) /uL Campbell # (Auto) 400 (0-900) /uL Eos # (Auto) 300 (0-450) /uL Baso # (Auto) 100 (0-100) /uL Sodium 137 (137-145) mmol/L Potassium 3.9 (3.4-5.1) mmol/L Chloride 106 (98-107) mmol/L Carbon Dioxide 24 (22-32) mmol/L BUN 8 (7-17) mg/dL Creatinine 0.86 (0.52-1.04) mg/dL Estimated GFR > 60 (>60) mL/min BUN/Creatinine Ratio 9.3 (6-22) Glucose 86 (70-99) mg/dL Calcium 9.2 (8.4-10.2) mg/dL Total Bilirubin 0.5 (0.2-1.3) mg/dL AST 24 (14-36) IU/L ALT 20 (<35) IU/L Alkaline Phosphatase 88 (38-126) U/L Total Protein 7.2 (6.3-8.2) g/dL Albumin 4.5 (3.5-5.0) g/dL Globulin 2.7 (1.7-4.1) g/dL Albumin/Globulin Ratio 1.7 (1.0-2.8) Lipase 34 (23-300) U/L Imaging Data CT scan - abdomen/pelvis: Radiologist's Impression: A moderate fat containing epigastric abdominal wall hernia, which is worse than in 2021. Normal appendix. No dilated loops of small bowel are seen. [facility] Narrative Medical decision making narrative: Patient's CT of her abdomen pelvis did not show a strangulated hernia at this time. Patient wants to be discharged and her pain is improved significantly. Patient will follow up with General surgery as planned. Discharge Plan Departure Patient Disposition: Home Clinical Impression: Abdominal wall hernia Instructions: Abdominal Hernia Activity Restrictions/Additional Instructions: Follow up with General surgery as planned. Come back to ER if pain worsens. Prescriptions: No Action Spiriva Respimat 2.5 mcg/actuation mist 2 puff inhalation DAILY Qty: 4 8RF albuterol sulfate 90 mcg/actuation HFA aerosol inhaler See Rx Instructions .ROUTE .COMPLEX Qty: 9 0RF Dose Instruction: INHALE 2 PUFFS BY MOUTH EVERY 4 HOURS NEEDED FOR BRONCHOSPASM. Rx Instructions: INHALE 2 PUFFS BY MOUTH EVERY 4 HOURS NEEDED FOR BRONCHOSPASM. budesonide-formoterol [Symbicort] 160-4.5 mcg/actuation HFA aerosol inhaler 2 puff PO BID Qty: 11 2RF albuterol sulfate 2.5 mg /3 mL (0.083 %) solution for nebulization 2.5 mg inhalation Q4H PRN (Reason: shortness of breath or wheezing) Qty: 75 2RF primidone 50 mg tablet 50 mg PO BEDTIME Qty: 90 1RF dextroamphetamine-amphetamine [Adderall] 10 mg tablet 10 mg PO BID Qty: 60 0RF Rx Instructions: take dosages at least 4-6 hours apart clobetasol 0.05 % cream 1 applic topical BID 14 Days Qty: 45 1RF ibuprofen 600 mg tablet 600 mg PO Q4-6H PRN (Reason: pain) Patient Comments: TAKE 1 TABLET BY MOUTH EVERY 4 TO 6 HOURS DIRECTED Referrals: Gagan Long MD [Primary Care Provider, Family Practice] Stand Alone Forms: Patient Portal/API
--- NOTE | 2024-10-19 15:48 | DI.CT.S_ITS ---
PROCEDURE: CT ABDOMEN PELVIS W CON INDICATIONS: Mid abdominal pain TECHNIQUE: After the administration of intravenous contrast, axial sections acquired from the lung bases to the pubic symphysis. Coronal and sagittal reformats were performed. For radiation dose reduction, the following was used: automated exposure control, adjustment of mA and/or kV according to patient size. COMPARISON: [facility], CT, CT ABDOMEN PELVIS WO/W CON, 12/04/2019, 11:28. [facility], CT, CT ABDOMEN PELVIS W CON, 03/13/2022, 22:28. FINDINGS: Image quality: Diagnostic. Lower Chest: A small hiatal hernia is incidentally noted. ABDOMEN: Liver: No solid mass. Gallbladder: No radiopaque gallstones or wall thickening. Biliary ducts: No biliary dilation. Pancreas: No ductal dilation. Spleen: Size is within normal limits. Adrenal Glands: Nodular thickening is seen of both adrenal glands, yet without a focally suspicious adrenal nodules. Kidneys and Ureters: No hydronephrosis. No solid mass. No complex renal cystic lesion which requires follow up. A tiny 1 mm nonobstructing right-sided kidney stone is seen. An additional 1 mm nonobstructing left-sided kidney stone is seen. Stomach and Bowel: Normal colonic caliber, without significant wall thickening. A normal appendix is noted. No dilated loops of small bowel are seen. Peritoneum: No abnormal intraperitoneal fluid. No free air. Ventral Wall: A moderate fat containing epigastric hernia is seen. Abdominal Nodes: No retroperitoneal or mesenteric adenopathy by size criteria. Vessels: Aorta and inferior vena cava are normal in size. PELVIS: Pelvic Organs: Uterine fibroids are seen. No adnexal masses are seen on either side. Bladder: No bladder wall thickening, accounting for underdistention. Pelvic Nodes: No enlarged lymph nodes. Miscellaneous: No inguinal hernias are seen. Bones: No aggressive osseous abnormality. IMPRESSION: A moderate fat containing epigastric abdominal wall hernia, which is worse than in 2021. Normal appendix. No dilated loops of small bowel are seen. Additional findings: Small hiatal hernia Tiny bilateral nonobstructing kidney stones Uterine fibroids Dictated by: Jacoby St M.D. on 10/19/2024 at 16:02 Approved by: Jacoby St M.D. on 10/19/2024 at 16:06
[2024-10-19 16:39] LABS: Add Manual Diff / Slide Review NO; Hematocrit 44.5 % (36-46); Hemoglobin 15.0 g/dL (12.0-16.0); Lymphocytes Absolute Auto 2900 /uL (1100-4500); Mean Corpuscular HGB Conc 33.8 % (30-36); Mean Corpuscular Hemoglobin 29.5 PG (26-34); Mean Corpuscular Volume 87.5 fL (80-100); Platelet Count 180 X10^3/uL (150-400)
[2024-10-19 16:51] LABS: Alanine Aminotransferase 20 IU/L (<35); Albumin 4.5 g/dL (3.5-5.0); Albumin Globulin Ratio 1.7 (1.0-2.8); Alkaline Phosphatase 88 U/L (38-126); Blood Urea Nitrogen 8 mg/dL (7-17); Calcium 9.2 mg/dL (8.4-10.2); Carbon Dioxide 24 mmol/L (22-32); Chloride 106 mmol/L (98-107); Estimated Glomerular Filt Rate > 60 mL/min (>60); Globulin 2.7 g/dL (1.7-4.1); Glucose 86 mg/dL (70-99); HEMOLYSIS < 15 (0-50); Lipase 34 U/L (23-300); Potassium 3.9 mmol/L (3.4-5.1); Sodium 137 mmol/L (137-145); Total Protein 7.2 g/dL (6.3-8.2)
[2024-10-19 17:17] VITALS: BP 150/84; PULSE 88; RESP 16; O2SAT 99
== END 2024-10-19 17:25 | disposition home or self-care (01) ==
PROVIDERS: Emergency Provider Family Medicine; PCP Family Medicine
DX: K43.9 Ventral hernia without obstruction or gangrene (principal)
CPT/HCPCS: 36415; 74177; 80053; 83690; 85025; 99283; 99284; Q9967

== ENCOUNTER → 2025-03-06 15:50 | Outpatient (CLI) | payer MEDICARE, MEDICAID, SELFPAY ==
--- NOTE | 2025-03-06 16:08 | DI.RAD.S_ITS ---
PROCEDURE: XR HIP W PEL IF DONE BILAT 2V INDICATIONS: bilateral hip and low back pain TECHNIQUE: 2 views of the hip were acquired. COMPARISON: None. FINDINGS: Bones: No fractures or dislocations. No suspicious bony lesions. The visualized pelvic ring appears intact. Soft tissues: No suspicious soft tissue calcifications or masses. IMPRESSION: No acute bony abnormality. Dictated by: Mark Gaming M.D. on 03/07/2025 at 11:58 Approved by: Mark Gaming M.D. on 03/07/2025 at 11:59
--- NOTE | 2025-03-06 16:08 | DI.RAD.S_ITS ---
PROCEDURE: XR LUMBAR SPINE 2-3V INDICATIONS: bilateral hip and low back pain TECHNIQUE: 3 views of the lumbar spine were acquired. COMPARISON: None. FINDINGS: Bones: 5 [id number] vertebrae are present. Mild convex left scoliosis centered at L2. Espinosa angle of 17 degrees. No vertebral body compression fractures. No suspicious bony lesions. Mild to moderate, multilevel degenerative disc disease and lower lumbar facet arthrosis. Soft tissues: Overlying bowel gas pattern is normal. No suspicious soft tissue calcifications. IMPRESSION: Mild to moderate, multilevel degenerative disc disease and lower lumbar facet arthrosis. Convex left scoliosis centered at L2. Dictated by: Mark Gaming M.D. on 03/07/2025 at 11:59 Approved by: Mark Gaming M.D. on 03/07/2025 at 12:38
== END ==
PROVIDERS: PCP Family Medicine; Referring Provider Family Medicine; Visit Provider Family Medicine
DX: M51.360 Other intervertebral disc degeneration, lumbar region with discogenic back pain only (principal); M41.9 Scoliosis, unspecified; M47.816 Spondylosis without myelopathy or radiculopathy, lumbar region; M25.552 Pain in left hip; M25.551 Pain in right hip; G62.9 Polyneuropathy, unspecified
CPT/HCPCS: 72100; 73521